=== PATIENT | male | born 1950 | race Caucasian/White ===

== ENCOUNTER 2016-08-17 06:51 | Outpatient (CLI) | payer MEDICARE, OTHER ==
[~2016-08-17] VITALS: Ht 157.5 cm; Wt 92.7 kg
--- NOTE | ~2016-08-17 | HEMODYNAMI ---
PATIENT:Amanda KENDRICK MEDICAL RECORD: [id number] : 52 LOCATION:DGIN ADMISSION DATE: 08/17/16 Generatedon:08/17/201610:40 Patient name: Amanda KENDRICK Patient #: [id number] SSN: : [birth year] Date of study: 08/17/2016 Page: Of Hemodynamic Procedure Report Patient Data Patient Demographics Procedure consent was obtained First Name: Amanda Gender: Male Last Name: AROLDO : 1950 [facility] Initial: B Age: 66 year(s) Patient #: [id number] Race: Additional ID: [id number] Contact details Address: [address] [place] [address] State: [place] City: [facility] Zip code: [address] Past Medical History Allergies Allergen Reaction Date Comments Reported Other allergy 12/27/2015 codeine, penicillins Codeine 08/17/2016 Penicillins 08/17/2016 SUSAN inhibitors 08/17/2016 Admission Admission Data Admission Date: 08/17/2016 Admission Time: 6:51 Lab Results Lab Result Date: 08/17/2016 Lab Result Time: 0:00 Biochemistry Name Units Result Min Max Creatinine mg/dl 1.3 --(---*)-- 0.6 1.3 CBC Name Units Result Min Max Hemoglobin g/dl 14.1 --(*---)-- 13.5 17.5 Procedure Procedure Types Cath Procedure Diagnostic Procedure LHC LHC w/Coronaries w/Grafts PCI Procedure SVG-BMS/KAMILA Initial Procedure Description Procedure Date Procedure Date: 08/17/2016 Procedure Start Time: 10:17 Procedure End Time: 10:39 Procedure Staff Name Function Eliazar Krishnan MD Performing Physician Obdulio Melton RT Scrub Gavin Church RN Bass Fisher Rosalie Ibarra RN Nurse Rita Agrawal RT Monitor Procedure Data Cath Procedure Fluoroscopy Diagnostic fluoroscopy Total fluoroscopy Time: 5.2 time: 5.2 min min Diagnostic fluoroscopy Total fluoroscopy dose: dose: 1816 mGy 1816 mGy Contrast Material Contrast Material Type Amount (ml) Isovue 300 136 Entry Location Entry Primary Successful Side Size Upsize Upsize Entry Closure Succes sful Closure Location (Fr) 1 (Fr) 2 (Fr) Remarks Device Remarks Femoral Right 5 Fr 6 Fr Vascade artery Short Closure System Estimated blood loss: 10 ml Diagnostic catheters Device Type Used For End Catheter Placement Cordis 5Fr Pigtail LV Angiography Catheter (MP) Cordis 5Fr JL 4.0 Left Coronary Catheter (MP) Angiography Cordis 5Fr 3DRC Catheter Right Coronary (MP) Angiography Cordis Infinity 5Fr AR 2 Right Coronary MOD catheter Angiography Cordis Infinity 5Fr MPA-2 SVG Angiography catheter Procedure Complications No complications Procedure Medications Medication Administration Route Dosage Oxygen NC 2 l/min Heparin Flush Bag added to field 2 bags (1000units/500ml NS) Lidocaine 2% added to field 20 Versed I.V. 1 mg Fentanyl I.V. 50 mcg Versed I.V. 1 mg Fentanyl I.V. 50 mcg Heparin Bolus I.V. 4000 units Hemodynamics Rest HGB: 14.1 (g/dl) Heart Rate: 60 (bpm) Snapshots Pre Cath Intra NCS Post Cath Vital Signs Time Heart Resp SPO2 NIBP (mmHg) Rhythm Pain Sedation Rate (ipm) (%) Status Level (bpm) 10:03:31 65 22 98 128/76(101) NSR 0 (11) 10(A) , No pain 10:08:29 66 20 94 Measuring NSR 0 (11) 10(A) , No pain 10:08:32 66 20 94 148/84(110) NSR 0 (11) 10(A) , No pain 10:12:45 64 18 98 117/64(81) NSR 0 (11) 10(A) , No pain 10:16:59 63 18 99 118/71(87) NSR 0 (11) 10(A) , No pain 10:21:13 63 18 99 126/70(93) NSR 0 (11) 9(A) , No pain 10:25:25 64 18 99 99/58(77) NSR 0 (11) 9(A) , No pain 10:29:35 63 16 99 109/57(81) NSR 0 (11) 9(A) , No pain 10:33:43 63 17 98 88/56(70) NSR 0 (11) 9(A) , No pain 10:37:24 65 16 98 113/66(92) NSR 0 (11) 9(A) , No pain Medications Time Medication Route Dose Verified Delivered Reason Notes Effectiveness by by 10:06:14 Oxygen NC 2 Eliazar Rosalie Per physician l/min Eulogio Ibarra RN 10:06:20 Heparin Flush added 2 Eliazaryusuf Macrey used for Bag to bags Eulogio Krishnan MD procedure (1000units/500ml field NS) 10:06:27 Lidocaine 2% added 20ml Eliazar Eliazar used for to vial Eulogio Krishnan MD procedure field 10:15:11 Versed I.V. 1 mg Eliazar Rosalie for sedation Eulogio Ibarra RN 10:15:17 Fentanyl I.V. 50 Eliazar Rosalie for sedation mcg Eulogio Ibarra RN 10:17:42 Versed I.V. 1 mg Eliazar Rosalie for sedation Eulogio Ibarra RN 10:17:49 Fentanyl I.V. 50 Eliazar Rosalie for sedation mcg Eulogio Ibarra RN 10:28:03 Heparin Bolus I.V. 4000 Eliazar Rosalie for dose units Eulogio Ibarra RN anticoagulation verified with dr krishnan Procedure Log Time Note 9:20:23 Gavin Church RN sent for patient. Start room use. 9:55:54 Informed consent obtained and on chart 9:56:28 Time tracking: Regular hours 9:56:32 Plan of Care:Hemodynamics will remain stable., Cardiac rhythm will remain stable., Comfort level will be maintained., Respiratory function will remain adequate., Patient/ family verbilizes understanding of procedure., Procedure tolerated without complication., Recovers from procedure without complications.. 10:02:21 Patient received from Outpatients to CCL 1 Alert and oriented. Tansferred to table in Supine position. 10:02:22 Warm blankets applied, and jacinto hugger turned on for patient comfort. 10:02:22 Correct patient and procedure confirmed by team. 10:02:23 ECG and BP/O2 sat monitors applied to patient. 10:02:24 Vital chart was started 10:02:25 Full Disclosure recording started 10:04:46 Rhythm: sinus rhythm 10:04:58 H&P Date Dictated: 08/15/2016 Within 30 days and on chart., H&P Addendum completed by physician on day of procedure. (MUST COMPLETE FOR ALL OUTPATIENTS). 10:04:59 Pre-procedure instructions explained to patient. 10:04:59 Pre-op teaching completed and patient verbalized understanding. 10:05:01 Family in waiting room. 10:05:04 Patient NPO since Midnight. 10:05:11 Patient allergic to Codeine 10:05:16 Patient allergic to Penicillins 10:05:19 Patient allergic to SUSAN inhibitors 10:05:24 Is the patient allergic to Iodine/contrast media? No. 10:05:29 Is patient on blood thinner?Yes 10:05:35 ACC The patient was administered the following blood thiners within the last 24 hours: ACCPlavix 10:05:36 Patient diabetic? Yes. 10:05:37 If diabetic: On Metformin? Yes 10:05:40 If on Metformin: Last Dose? 08/16/2016 10:05:46 Previous problem with sedation/anesthesia? No ? 10:05:48 Snore? Yes 10:05:48 Sleep apnea? Yes 10:05:49 Deviated septum? No 10:05:50 Opens mouth fully? Yes 10:05:51 Sticks out tongue? Yes 10:05:56 Airway obstruction? No ? 10:05:59 Dentures? Yes In 10:06:02 Pre procedure: right dorsailis pedis pulse 2+ Normal; easily identifiable; not easily obliterated 10:06:14 Oxygen 2 l/min NC was given by Rosalie Ibarra RN; Per physician; 10:06:14 Patient pain scale 2/10 Chest. 10:06:20 Heparin Flush Bag (1000units/500ml NS) 2 bags added to field was given by Eliazar Krishnan MD; used for procedure; 10:06:20 IV patent on arrival in left hand with 0.9% NaCl at [facility]. 10:06:27 Lidocaine 2% 20ml vial added to field was given by Eliazar Krishnan MD; used for procedure; 10:07:36 Lab Result : Hemoglobin 14.1 g/dl 10:07:36 Lab Result : Creatinine 1.3 mg/dl 10:07:41 Lab results completed and on chart. 10:07:43 Right groin area was prepped with chlora-prep and draped in sterile fashion 10:07:45 Alarms reviewed by R. N. 10:07:46 Sharps counted by scrub and verified by R.N. 10::15 Baseline sample Acquired. 10:14:42 Final Timeout: patient, procedure, and site verified with staff and physician. All members of the team are in agreement. 10:14:44 Right groin site verified by team. 10:14:47 Physical assessment completed. ASA score P 2 - A patient with mild systemic disease as per Eliazar Krishnan MD. 10:14:51 Sedation plan: IV Moderate Sedation Versed, Fentanyl 10:14:56 Zero performed for pressure channel P1 10:15:11 Versed 1 mg I.V. was given by Rosalie Ibarra RN; for sedation; 10:15:17 Fentanyl 50 mcg I.V. was given by Rosalie Ibarra RN; for sedation; 10:16:02 Zero performed for pressure channel P1 10:16:07 Procedure started. 10:17:24 Local anesthetic to right femoral artery with Lidocaine 2% by Eliazar Krishnan MD.INITIAL ACCESS ONLY 10:17:42 Versed 1 mg I.V. was given by Rosalie Ibarra RN; for sedation; 10:17:49 Fentanyl 50 mcg I.V. was given by Rosalie Ibarra RN; for sedation; 10:17:53 A 5 Fr sheath was inserted into the Right Femoral artery 10:18:02 Use device set Femoral Dx 10:18:03 Acist Syringe opened to sterile field. 10:18:04 Bag Decanter opened to sterile field. 10:18:04 Cardinal Cath Pack opened to sterile field. 10:18:05 Terumo 5Fr Halliday Sheath opened to sterile field. 10:18:05 St Shreyas 260cm J .035 wire opened to sterile field. 10:18:06 Acist Hand Control opened to sterile field. 10:18:06 Acist Manifold opened to sterile field. 10:18:07 Cordis Infinity 5Fr Multipack catheter opened to sterile field. 10:18:07 Tegaderm 4 x 4 opened to sterile field. 10:18:13 A Cordis 5Fr Pigtail Catheter (MP) was advanced over the wire and used for LV Angiography. 10:18:59 LV gram done using MARSHALL 10:19:00 LV hemodynamics recorded. 10:19:03 Injector settings: Ml/sec: 10, Volume: 20, 10:19:08 EF : 40 % 10:19:11 Catheter removed. 10:19:16 A Cordis 5Fr JL 4.0 Catheter (MP) was advanced over the wire and used for Left Coronary Angiography. 10:21:08 Catheter removed. 10:21:29 A Cordis 5Fr 3DRC Catheter (MP) was advanced over the wire and used for Right Coronary Angiography. 10:21:36 Catheter removed. 10:23:12 A Cordis Infinity 5Fr AR 2 MOD catheter was advanced over the wire and used for Right Coronary Angiography. 10:23:52 Terumo 6Fr Halliday Sheath opened to sterile field. 10:23:52 Mobypark BasixCompak Inflation Kit opened to sterile field. 10:23:53 Gonzalez Novintisper J 300cm 0.014 guide wire opened to sterile field. 10:24:17 Catheter removed. 10:25:32 A Cordis Infinity 5Fr MPA-2 catheter was advanced over the wire and used for SVG Angiography. To RCA 10:25:54 Catheter removed. 10:27:01 Medtronic Launcher 6Fr MB 1 guide catheter opened to sterile field. 10:27:02 [place] IVUS Catheter opened to sterile field. 10:27:25 Sheath upsized to a 6 Fr Short. 10:27:44 Cardiac Site: SVG to RCA 10:27:47 ACC Pre-intervention ISAAC Flow is 3. 10:27:57 6 Fr MB1 guide catheter was inserted over the wire 10:28:03 Heparin Bolus 4000 units I.V. was given by Rosalie Ibarra RN; for anticoagulation; dose verified with dr krishnan 10:28:47 Whisper wire advanced. 10:29:28 IVUS catheter advanced over wire. 10:32:37 IVUS catheter removed over wire. 10:33:53 Inflation Number: 1 A Medtronic Integrity 4.0 X 22 stent was prepped and advanced across the Aorta Right -> Dist RCA. The stent was deployed at 13 SAMSON for 0:06 (min:sec). 10:34:04 ACC Post-intervention ISAAC Flow is 3. 10:34:05 Stent catheter was removed intact over wire. 10:34:06 Wire removed. 10:34:06 Guide catheter removed. 10:34:17 Vascade 6/7 Fr Closure Device opened to sterile field. 10:34:25 Sheath removed intact; hemostasis achieved with Vascade Closure System to the Right Femoral artery. 10:35:18 Procedure ended.(Physican Out) 10:36:44 Fluoroscopy time 05.20 minutes. 10:36:49 Flurop Dose total: 1816 10:36:49 Fluoroscopy dose: 1816 mGy 10:36:53 Contrast amount:Isovue 300 136ml. 10:36:54 Sharps counted by scrub and verified by R.N. 10:36:57 Insertion/operative site no bleeding no hematoma. 10:36:59 Post-op/insertion site Right Femoral artery dressed using a 4 x 4 and Tegaderm. 10:37:03 Post right femoral artery:stable, clean and dry 10:37:04 Post Procedure Pulses reassessed and unchanged 10:37:11 Post-procedure physical assessment completed. ASA score P 2 - A patient with mild systemic disease as per Eliazar Krishnan MD. 10:37:17 Post procedure rhythm: sinus rhythm 10:37:21 Estimated blood loss: 10 ml 10:37:22 Post procedure instruction explained to patient.Patient verbalizes understanding. 10:37:25 Patient needs reinforcement of post procedure teaching. 10:37:38 Procedure type changed to Cath procedure, Diagnostic procedure, LHC, LHC w/Coronaries w/Grafts, PCI procedure, SVG-BMS/KAMILA Initial 10:37:48 Procedure Complication : No complications 10:37:50 See physician's report for complete and final results. 10:39:08 Procedure and supply charges have been captured, reviewed, submitted and are correct. 10:39:09 Vital chart was stopped 10:39:11 Report given to Post Procedure Room. 10:39:15 Patient transfered to Post Procedure Room with Stretcher. 10:39:18 Procedure ended. 10:39:18 Full Disclosure recording stopped 10:40:31 End room use (Document Last) 10:40:37 ACC-PCI Only Patient was given prescriptions, or instructed by Eliazar Krishnan MD to start/continue the following medications upon discharge: Plavix Intervention Summary Intervention Notes Time ActionType Lesion and Equipment Action# Pressure Duration Attributes Used 10:33:53 Place stent Aorta Right Medtronic 1 13 00:06 -> Dist RCA Integrity 4.0 X 22 stent Device Usage Item Name Manufacture Quantity Catalog Hospital Part Current Minima l Lot# / Number Charge Number Stock Stock Serial# Code Acist Acist 1 94920 653449 059755 107799 20 Syringe Medical Systems Inc Bag Microtek 1 2002S 590197 17665 102022 5 Decanter Medical Inc. Cardinal Cardinal 1 [id number] 419323 60186 797742 5 Cath Pack Health Terumo 5Fr Terumo 1 [id number] 233773 362892 1986[address] St Shreyas 1 719510 552693 252948 206496 30 260cm J .035 wire Acist Hand Acist 1 68511 433993 583753 032545 5 Control Medical Systems Inc Acist Acist 1 83820 407821 625714 728685 5 Manifold Medical Systems Inc Cordis Cardinal 1 [id number] 115458 55832 618287 30 Infinity Health 5Fr Multipack catheter Tegaderm 4 3M 1 1626W 912965 651418 992059 5 x 4 Cordis 5Fr Cardinal 1 053735 5 Pigtail Health Catheter (MP) Cordis 5Fr Cardinal 1 216117 5 JL 4.0 Health Catheter (MP) Cordis 5Fr Cardinal 1 202984 5 3DRC Health Catheter (MP) Cordis Cardinal 1 [id number] 967148 374751 270455 20 Infinity Health 5Fr AR 2 MOD catheter Terumo 6Fr Terumo 1 [id number] 891860 831908 703701 40 Halliday Sheath Merit Merit 1 [id number] 256411 002359 480731 15 [facility] Hospit[facility] Medical Inflation Kit Gonzalez Gonzalez 1 [id number] 783860 407359 063854 5 Whisper J Vascular 300cm 0.014 guide wire Cordis Cardinal 1 [id number] 560066 200606 101201 5 Infinity Health 5Fr MPA-2 catheter Medtronic Medtronic 1 [id number] 156183 13366 727279 1 Launcher 6Fr MB 1 guide catheter [place] 1 [id number] 971587 557070 918866 8 [place] IVUS Catheter Medtronic Medtronic 1 [id number] 478741 133409 437058 5 [id number] Integrity 4.0 X 22 stent Vascade 6/7 Cardiva 1 [id number] 796480 009047 306356 5 Fr Closure Medical, Device Inc. Signature Audit [place] Stage Time Signature Unsigned Intra-Procedure 08/17/2016 Rita 10:40:52 AM Counts RT(R) Signatures Monitor : Rita Signature : Counts RT Date : Time : [place] [id number] [place] [address]
[~2016-08-17 06:51] MED LIST: ACETAMINOPHEN500 M1 PO; ASPIRIN EC325 M1 PO; ASPIRIN EC81 M1; ASPIRIN325 MG PO; BACLOFEN10 MG PO; BENICAR20 MG PO; COLCRYS0.6 MG PO; COZAAR50 MG PO; FLOVENT DI50 MCG/DIS INH; FLUTICASONE PRO16 GM NASAL; FUROSEMIDE PO; GABAPENTIN100 MG PO; GLIPIZIDE10 MG PO; GLUCOPHAGE1000 MG PO; IMDUR60 MG PO; ISOSORBIDE MONO60 M1 PO; LANTUS INSULIN10 ML INJ; LASIX20 MG PO; MELATONIN 3 MG1 TAB PO; NEURONTIN 300300 MG PO; NITROSTAT0.3 MG SL; NOVOLOG100 U/M1 SC; PLAVIX75 MG PO; PRAVACHOL80 MG PO; SYNTHROID175 MCG PO; TOPROL XL25 MG PO; TOPROL XL50 MG PO; TRIGLIDE160 MG PO; ZANTAC150 MG PO
[2016-08-17 08:03] LABS: BASOPHILS 0.2 % (0.0-2.0); EOSINOPHILS 3.6 % (0-7); HEMATOCRIT 43.5 % (42.0-54.0); HEMOGLOBIN 14.1 g/dL (13.5-17.5); IMMATURE GRANULOCYTES 0.2 % (0-5); LYMPHOCYTES 30.8 % (15-50); MCHC 32.4 g/dL (31.0-37.0); MCV 86.3 fL (80.0-100.0); MEAN PLATELET VOLUME 10.4 fL (7.4-10.4); MONOCYTES 11.3 % (2-11); NEUTROPHILS 53.9 % (40-80); PLATELET COUNT 229 10x3/uL (130-400); RBC 5.04 10x6/uL (4.20-6.10); WBC 4.4 10x3/uL (4.8-10.8)
[2016-08-17 08:06] LABS: ANION GAP 12.2 mmol/L (8-16); CALCIUM 9.4 mg/dL (8.5-10.1); CARBON DIOXIDE 28.9 mmol/L (21.0-32.0); CREATININE - SERUM 1.3 mg/dL (0.6-1.3); POTASSIUM - SERUM 4.1 mmol/L (3.5-5.1)
[2016-08-17] MEDS ORDERED: K-DUR20 MEQ PO (08:58)
[2016-08-17 09:01] VITALS: BP 103/67; Ht 157.5 cm; Wt 92.7 kg
--- NOTE | 2016-08-17 11:00 | NUR ---
1100 LYING FLAT, RESTING WITH EYES CLOSED. 2L NC APPLIED WHILE SLEEPING. NSR RATE 62 W NO C/O CHEST PAIN. PULSES PALP X 4. R GROIN 6F VASCADE C/D/I WITH NO HEMATOMA OR BLEEDING. AT BEDSIDE.
--- NOTE | 2016-08-17 11:43 | NUR ---
1130 CONTINUES TO SLEEP, NC IN PLACE. NSR RATE 62. R GROIN REMAINS C/D/I WITH NO HEMATOMA OR BLEEDING. AT SIDE.
--- NOTE | 2016-08-17 12:58 | NUR ---
1230 LYING FLAT, AWAKE. ROOM AIR WITH NO DISTRESS. NSR RATE 63 W NO C/O CHEST PAIN. PULSES PALP X 4. R GROIN 6F VASCADE C/D/I WITH NO HEMATOMA OR BLEEDING.
--- NOTE | 2016-08-17 13:27 | NUR ---
AWAKE, LYING FLAT TALKING WITH AT BEDSIDE. ROOM AIR W NO DISTRESS. NSR RATE 63, R GROIN REMAINS C/D/I WITH NO HEMATOMA OR BLEEDING.
--- NOTE | 2016-08-17 14:11 | NUR ---
1400 ELEVATED HOB, ALL VITALS WNL. R GROIN 6F VASCADE C/D/I WITH NO HEMATOMA OR BLEEDING. AT BEDSIDE. WILL MONITOR GROIN FOR BLEEDING.
--- NOTE | 2016-08-17 14:21 | NUR ---
PIV REMOVED FROM LEFT HAND WITH BANDAID APPLIED. UP TO BEDSIDE TO DRESS.
--- NOTE | 2016-08-17 14:25 | NUR ---
AMBULATED TO BATHROOM TO VOID. R GROIN REMAINS C/D/I AFTER AMBULATING. D/C INSTRUCTIONS DISCUSSED WITH PATIENT AND . WHEELED DOWN VIA WHEELCHAIR.
--- NOTE | 2016-08-24 11:11 | OP ---
PATIENT NAME: Amanda KENDRICK MEDICAL RECORD: [id number] :52 LOCATION:D.CAT ADMISSION DATE: SURGEON: PAOLA SANDOVAL MD DATE OF OPERATION: 08/17/2016 PROCEDURES: 1. PTCA stent, vein graft to RCA. 2. Left heart catheterization. 3. Selective coronary angiography. 4. Vein graft angiography. 5. Left ventriculogram. INDICATION: Angina, coronary artery disease, abnormal ECG, inferior ST-T changes. PROCEDURE IN DETAIL: After informed consent was obtained and after detailed explanation of the risks, benefits as well as alternative therapies, the patient elected to proceed with angiogram and angioplasty. The right femoral area was prepped and draped in normal sterile fashion. Right femoral artery was cannulated via modified Seldinger technique with placement of 6-Telugu sheath. All catheters exchanged through this sheath. FINDINGS: Left ventriculogram was performed in standard 30-degree MARSHALL view reveals global hypokinesis. Overall ejection fraction in the 40% range. SELECTIVE CORONARY ANGIOGRAPHY: 1. Left main is with no significant angiographic disease. 2. Left anterior descending has previously placed stents. There is an area of questionable stenosis and haziness in the mid distal vessel, otherwise this is widely patent. 3. Left circumflex is totally occluded. 4. Vein graft to left circumflex is totally occluded. 5. The right coronary feeds the PLV system. This is patent with only moderate irregularities. 6. Vein graft to the right PDA is patent, however, intravascular ultrasound revealed 70% hazy stenosis in the mid shaft. PTCA STENT OF THE RCA: Vein graft with stent used of 4.0 x 22 mm Integrity. Result was 0% residual stenosis. OVERALL IMPRESSION: Successful percutaneous transluminal coronary angioplasty stent of the vein graft to the right coronary artery going from 70% initial stenosis confirmed by intravascular ultrasound to 0% residual. TRANSINT:[id number] Voice Confirmation ID: [id number] DOCUMENT ID: [id number] PAOLA SANDOVAL MD at 1111 CC: [id number] DICTATION DATE: 08/17/16 1041 BROOMCORN SORTER: 08/17/16 1307 DEP CLI 08/17/16 [place] [address]
== END 2016-08-17 14:26 | disposition home or self-care (01) ==
LOC: D.CATH 06:51
PROVIDERS: Internal Medicine Interventional Cardiology
DX: I25.719 Atherosclerosis of autologous vein coronary artery bypass graft(s) with unspecified angina pectoris (principal); R94.39 Abnormal result of other cardiovascular function study

== ENCOUNTER 2017-09-27 08:10 | Outpatient (CLI) | payer MEDICARE, OTHER ==
[~2017-09-27] VITALS: Ht 157.5 cm; Wt 95.5 kg
--- NOTE | ~2017-09-27 | OP ---
PATIENT NAME: Amanda KENDRICK MEDICAL RECORD: [id number] :52 LOCATION:D.CAT ADMISSION DATE: SURGEON: PAOLA SANDOVAL MD DATE OF OPERATION: 09/27/2017 PROCEDURES: 1. PTCA stent vein graft to RCA. 2. PTCA, LAD. 3. Left heart catheterization. 4. Selective coronary angiography. 5. Left ventriculogram. 6. Vein graft angiography. INDICATION: Angina and coronary artery disease. PROCEDURE IN DETAIL: After informed consent was obtained and after detailed explanation of risks, benefits as well as alternative therapies, the patient elected to proceed with angiogram and angioplasty. The right femoral area was prepped and draped in normal sterile fashion. The right femoral artery was cannulated via modified Seldinger technique with placement of 6-Turkish sheath. All catheters exchanged through this sheath. FINDINGS: The left ventriculogram was performed in standard 30-degree MARSHALL view, reveals preserved cardiac wall motion, ejection fraction 50%. SELECTIVE CORONARY ANGIOGRAPHY: 1. Left main showed no significant angiographic disease. 2. Left anterior descending has previously placed stents. These have 95% in-stent restenosis in the mid vessel. 3. Left circumflex is totally occluded. 4. Vein graft to the circumflex is totally occluded. 5. Right coronary has a total occlusion in the mid vessel. 6. Vein graft to the right coronary is patent, however, there is a new 70% to 80% stenosis in the proximal shaft throughout. PTCA STENT OF THE VEIN GRAFT TO THE RIGHT CORONARY ARTERY: The stent used was a 3.5 x 18 mm Miguelito stent. Result was 0% residual stenosis throughout. PTCA OF THE LAD: High pressure PTCA was made with a 2.5 and 3.0 NC Euphora balloon. Result was 0% residual stenosis. OVERALL IMPRESSION: Successful percutaneous transluminal coronary angioplasty stent of the vein graft to the RCA and successful percutaneous transluminal coronary angioplasty of the LAD, both going from 80% and 90% initial stenosis to 0% residual. TRANSINT:[id number] Voice Confirmation ID: [id number] DOCUMENT ID: [id number] OPERATIVE REPORT [id number] Amanda KENDRICK JEFFREY MD CC: [id number] DICTATION DATE: 09/27/17 1350 TRIAL JUDGE: 09/27/17 1632 REG [facility] [address] [place] [address]
--- NOTE | ~2017-09-27 | HEMODYNAMI ---
PATIENT:Amanda KENDRICK MEDICAL RECORD: [id number] : 52 LOCATION:[facility] ADMISSION DATE: 09/27/17 Generatedon:09/27/201713:52 Patient name: Amanda KENDRICK Patient #: [id number] SSN: : [birth year] Date of study: 09/27/2017 Page: Of Hemodynamic Procedure Report Patient Data Patient Demographics Procedure consent was obtained First Name: Amanda Gender: Male Last Name: AROLDO : 1950 Middle Initial: B Age: 67 year(s) Patient #: [id number] Race: Additional ID: [id number] Contact details Address: [address] [place] [address] State: [place] City: [facility] [place] Zip code: [address] Past Medical History Allergies Allergen Reaction Date Comments Reported Other allergy 12/27/2015 codeine, penicillins Codeine 08/17/2016 Penicillins 08/17/2016 SUSAN inhibitors 08/17/2016 Other allergy 09/27/2017 CODEINE, PCN Admission Admission Data Admission Date: 09/27/2017 Admission Time: 8:10 Height (in.): 5.2 BSA: 0.32 (m2) Height (cm.): 13.21 BMI: 5460.23 (kg/m2) Weight (lbs.): 210 Weight (kg.): 95.25 Lab Results Lab Result Date: 09/27/2017 Lab Result Time: 0:00 Biochemistry Name Units Result Min Max BUN mg/dl 29 --(----)-* 7 18 Creatinine mg/dl 1.5 --(----)-* 0.6 1.3 CBC Name Units Result Min Max Hemoglobin g/dl 14.7 --(-*--)-- 13.5 17.5 Procedure Procedure Types Cath Procedure Diagnostic Procedure LHC LHC w/Coronaries w/Grafts PCI Procedure Coronary Stent AMI/SVG/CORRECTION OFFICER CITY OR COUNTY JAIL PTCA or Stent SVG-BMS/KAMILA Initial PTCA PTCA Initial Miscellaneous Procedures Moderate Sedation up to 30 minutes Procedure Description Procedure Date Procedure Date: 09/27/2017 Procedure Start Time: 13:19 Procedure End Time: 13:51 Procedure Staff Name Function Janelle Snyder RT Monitor Eliazar Krishnan MD Performing Physician Rajesh Robledo RT Scrub Aguilar Reynolds RN Nurse Procedure Data Cath Procedure Fluoroscopy Diagnostic fluoroscopy Total fluoroscopy Time: 7.2 time: 7.2 min min Diagnostic fluoroscopy Total fluoroscopy dose: dose: 4404 mGy 4404 mGy Contrast Material Contrast Material Type Amount (ml) Isovue 300 117 Entry Location Entry Primary Successful Side Size Upsize Upsize Entry Closure Succes sful Closure Location (Fr) 1 (Fr) 2 (Fr) Remarks Device Remarks Femoral Right 5 Fr 6 Fr Exoseal artery Short Estimated blood loss: 10 ml Diagnostic catheters Device Type Used For End Catheter Placement MULTIPACK Pigtail 5 Fr Procedure catheter MULTIPACK JL 4.0 5Fr Procedure catheter DIAGNOSTIC AR 2 MOD 5 Fr Procedure catheter ([id number]) DIAGNOSTIC MPA-2 5Fr Procedure catheter ([id number]) Procedure Complications No complications Procedure Medications Medication Administration Route Dosage Oxygen NC 2 l/min Lidocaine 2% added to field 20 Heparin Flush Bag added to field 2 bags (1000units/500ml NS) 0.9% NaCl I.V. 100 ml/hr Versed I.V. 1 mg Fentanyl I.V. 50 mcg Versed I.V. 1 mg Fentanyl I.V. 50 mcg Heparin Bolus I.V. 4000 units Cardene I.C. 300 mcg Hemodynamics Rest BSA: 0.32 (m2) HGB: 14.7 (g/dl) O2 Consumption: Estimated: 37.56 (ml/min) O2 Con sumption indexed: Estimated:117.38 (ml/min/m) Heart Rate: 73 (bpm) Snapshots Pre Cath Intra NCS Post Cath Vital Signs Time Heart Resp SPO2 etCO2 NIBP Rhythm Pain Sedation Rate (ipm) (%) (mmHg) (mmHg) Status Level (bpm) 13:07:19 75 21 93 0 113/66(85) NSR 0 (11) 10(A) , No pain 13:11:31 72 16 97 36.9 97/67(79) NSR 0 (11) 10(A) , No pain 13:15:43 68 16 98 26.4 116/66(83) NSR 0 (11) 10(A) , No pain 13:19:54 71 14 97 15.8 108/70(85) NSR 0 (11) 9(A) , No pain 13:24:12 70 16 97 13.6 111/58(77) NSR 0 (11) 9(A) , No pain 13:28:26 71 16 97 30.2 106/65(80) NSR 0 (11) 9(A) , No pain 13:32:40 70 15 97 30.9 106/65(89) NSR 0 (11) 9(A) , No pain 13:36:58 73 15 98 30.9 103/57(85) NSR 0 (11) 9(A) , No pain 13:41:14 71 15 98 14.3 104/57(78) NSR 0 (11) 9(A) , No pain 13:45:29 79 19 97 36.9 92/57(66) NSR 0 (11) 10(A) , No pain 13:49:59 75 16 97 28.7 106/67(90) NSR 0 (11) 10(A) , No pain Medications Time Medication Route Dose Verified Delivered Reason Notes Effectiveness by by 13:10:47 Oxygen NC 2 Eliazar Buffie used for l/min Eulogio Reynolds RN procedure 13:10:56 Lidocaine 2% added 20ml Eliazar Eliazar for local to vial Eulogio Krishnan MD anesthetic field 13:11:03 Heparin Flush added 2 Eliazar Eliazar used for Bag to bags Eulogio Krishnan MD procedure (1000units/500ml field NS) 13:11:20 0.9% NaCl I.V. 100 Eliazar Buffie used for ml/hr Eulogio Reynolds RN procedure 13:17:53 Versed I.V. 1 mg Eliazar Buffie for sedation Eulogio Reynolds RN 13:17:59 Fentanyl I.V. 50 Eliazar Buffie for sedation mcg Eulogio Reynolds RN 13:23:09 Versed I.V. 1 mg Eliazar Buffie for sedation Eulogio Reynolds RN 13:23:13 Fentanyl I.V. 50 Eliazar Buffie for sedation mcg Eulogio Reynolds RN 13:32:22 Heparin Bolus I.V. 4000 Eliazar Buffie for verifi ed units Tauth MD Reynolds RN anticoagulation with dr krishnan 13:43:35 Cardene I.C. 300 Eliazar Eliazar [place] [facility] [place]ulogio Krishnan MD vasodilation Procedure Log Time Note 12:52:02 Patient Height : 5.2 inches 12:52:05 Patient Weight : 210 lbs 12:53:22 Aguilar Reynolds RN sent for patient. Start room use. 12:53:23 Time tracking: Regular hours 12:53:27 Plan of Care:Hemodynamics will remain stable., Cardiac rhythm will remain stable., Comfort level will be maintained., Respiratory function will remain adequate., Patient/ family verbilizes understanding of procedure., Procedure tolerated without complication., Recovers from procedure without complications.. 12:53:29 Signed procedure consent form obtained from patient. 12:53:42 H&P Date Dictated: 09/26/2017 Within 30 days and on chart.. 12:54:03 Patient allergic to Other allergyCODEINE, PCN 12:55:15 Lab Result : BUN 29 mg/dl 12:55:15 Lab Result : Hemoglobin 14.7 g/dl 12:55:15 Lab Result : Creatinine 1.5 mg/dl 12:56:28 Patient received from Pre/Post Procedure Room to CCL 3 Alert and oriented. Tansferred to table in Supine position. 12:56:29 Warm blankets applied, and jacinto hugger turned on for patient comfort. 12:56:29 Correct patient and procedure confirmed by team. 12:56:30 ECG and BP/O2 sat monitors applied to patient. 13:06:06 Vital chart was started 13:06:08 Baseline sample Acquired. 13:06:12 Rhythm: sinus rhythm 13:06:13 Full Disclosure recording started 13:06:15 Pre-procedure instructions explained to patient. 13:06:15 Pre-op teaching completed and patient verbalized understanding. 13:06:17 Family in patients room. 13:06:18 Patient NPO since Midnight. 13:06:20 Is the patient allergic to Iodine/contrast media? No. 13:06:21 Is patient on blood thinner?Yes 13:06:25 ACC The patient was administered the following blood thiners within the last 24 hours: ACCPlavix 13:06:30 Patient diabetic? Yes. 13:06:31 If diabetic: On Metformin? Yes 13:06:33 If on Metformin: Last Dose? 09/26/2017 13:06:36 Previous problem with sedation/anesthesia? No ? 13:06:37 Snore? Yes 13:06:38 Sleep apnea? No 13:06:39 Deviated septum? No 13:06:39 Opens mouth fully? Yes 13:06:40 Sticks out tongue? Yes 13:06:42 Airway obstruction? No ? 13:06:46 Dentures? Yes in tight 13:06:57 Pre procedure: right dorsailis pedis pulse 2+ Normal; easily identifiable; not easily obliterated 13:07:04 Patient pain scale 0/10 ?. 13:07:12 IV patent on arrival in left hand with 0.9% NaCl at [facility]. 13:07:19 Lab results completed and on chart. 13:07:22 Right groin area was prepped with chlora-prep and draped in sterile fashion 13:07:23 Alarms reviewed by R. N. 13:07:23 Sharps counted by scrub and verified by R.N. 13:10:47 Oxygen 2 l/min NC was administered by Aguilar Reynolds RN; used for procedure; 13:10:56 Lidocaine 2% 20ml vial added to field was administered by Eliazar Krishnan MD; for local anesthetic; 13:11:03 Heparin Flush Bag (1000units/500ml NS) 2 bags added to field was administered by Eliazar Krishnan MD; used for procedure; 13:11:06 Use device set Femoral Dx 13:11:07 ACIST Syringe (57088) opened to sterile field. 13:11:09 Bag Decanter (2002S) opened to sterile field. 13:11:09 ACIST Hand Control (05611) opened to sterile field. 13:11:10 ACIST Manifold (24935) opened to sterile field. 13:11:11 Tegaderm 4 x 4 (1626W) opened to sterile field. 13:11:13 Medline Cath Pack ([id number]) opened to sterile field. 13:11:13 SHEATH 5FR [place] (MNB357) opened to sterile field. 13:11:14 DIAGNOSTIC WIRE .035 260cm J wire (115875) opened to sterile field. 13:11:17 DIAGNOSTIC Multipack 5Fr catheter set ([id number]) opened to sterile field. 13:11:18 PERCUTANEOUS ENTRY 19GA needle opened to sterile field. 13:11:20 0.9% NaCl 100 ml/hr I.V. was administered by Aguilar Reynolds RN; used for procedure; ::23 --------ALL STOP TIME OUT------ 13:17:25 Final Timeout: patient, procedure, and site verified with staff and physician. All members of the team are in agreement. 13:17:26 Right groin site verified by team. 13::33 Physical assessment completed. ASA score P 2 - A patient with mild systemic disease as per Eliazar Krishnan MD. 13:17:37 Sedation plan: IV Moderate Sedation Medication:Versed, Fentanyl 13::53 Versed 1 mg I.V. was administered by Aguilar Reynolds RN; for sedation; 13::59 Fentanyl 50 mcg I.V. was administered by Aguilar Reynolds RN; for sedation; 13:19:41 Zero performed for pressure channel P1 13:19:46 Procedure started. 13:19:52 Local anesthetic to right femoral artery with Lidocaine 2% by Eliazar Krishnan MD.INITIAL ACCESS ONLY 13:22:37 A 5 Fr sheath was inserted into the Right Femoral artery 13:22:47 A MULTIPACK Pigtail 5 Fr catheter was advanced over the wire and used for Procedure. 13:22:50 LV gram done using MARSHALL 13::52 Injector settings: Ml/sec: 10, Volume: 20, 13:23:02 EF : 50 % 13:23:09 Versed 1 mg I.V. was administered by Aguilar Reynolds RN; for sedation; 13:23:13 Fentanyl 50 mcg I.V. was administered by Aguilar Reynolds RN; for sedation; 13:24:21 Catheter removed. 13:24:53 A MULTIPACK JL 4.0 5Fr catheter was advanced over the wire and used for Procedure. 13:25:06 LCA angiography performed. 13:25:30 Catheter removed. 13:26:32 SHEATH 6FR [place] (CZN240) opened to sterile field. 13:26:47 A DIAGNOSTIC AR 2 MOD 5 Fr catheter ([id number]) was advanced over the wire and used for Procedure. 13:26:54 SVG to Circ occluded. 13:27:11 INFLATOR Merit BasixCompak (EF8471) opened to sterile field. 13:27:41 RCA angiography performed. 13:27:51 Catheter removed. 13:28:19 A DIAGNOSTIC MPA-2 5Fr catheter ([id number]) was advanced over the wire and used for Procedure. 13:28:48 CHOICE PT Extra Support 182cm wire ([id number]) opened to sterile field. 13:28:56 Sheath upsized to a 6 Fr Short. 13:30:35 SVG to RCA angiography performed. 13:30:36 Catheter removed. 13:32:14 GUIDE 6FR XBLAD 3.5 catheter ([id number]) opened to sterile field. 13:32:22 Heparin Bolus 4000 units I.V. was administered by Aguilar Reynolds RN; for anticoagulation; verified with dr krishnan 13:32:41 6 Fr XBLAD 3.5 guide catheter was inserted over the wire 13:33:09 CHOICE ES 182 wire advanced. 13:33:45 Wire advanced across lesion. 13:35:02 Inflation number: 1 A EUPHORA 2.5 x 15 Balloon ([id number]) was prepped and advanced across the Mid LAD, then inflated to 19 SAMSON for 0:10 (min:sec). 13:35:34 Inflation number: 2 The EUPHORA 2.5 x 15 Balloon ([id number]) was reinflated across the Mid LAD, to 23 SAMSON for 0:10 (min:sec). 13:35:45 Balloon removed over the wire. 13:38:05 Inflation number: 3 A NC EUPHORA 3.0 x 12 balloon ([id number]) was prepped and advanced across the Mid LAD, then inflated to 24 SAMSON for 0:10 (min:sec). 13:38:37 Balloon removed over the wire. 13:39:42 GUIDE 6FR MB 1 catheter (LA6MB1) opened to sterile field. 13:40:01 Wire removed. 13:40:01 Guide catheter removed. 13:40:17 6 Fr MB 1 GUIDE guide catheter was inserted over the wire 13:41:36 CHOICE ES 182 wire advanced. 13:43:35 Cardene 300 mcg I.C. was administered by Eliazar Krishnan MD; for vasodilation; 13:44:32 Wire advanced across lesion. 13:44:33 Inflation Number: 1 A TIFFANY RX 3.5 x 18 stent ([id number]) was prepped and advanced across the Aorta Right -> Prox RCA. The stent was deployed at 13 SAMSON for 0:10 (min:sec). 13:44:48 Stent catheter was removed intact over wire. 13:44:48 Wire removed. 13:44:49 Guide catheter removed. 13:44:52 EXOSEAL 6Fr (EX600) opened to sterile field. 13:45:04 Sheath removed intact; hemostasis achieved with Exoseal to the Right Femoral artery. 13:45:07 Procedure ended.(Physican Out) 13:46:49 Fluoroscopy time 07.20 minutes. 13:47:00 Flurop Dose total: 4404 13:47:00 Fluoroscopy dose: 4404 mGy 13:47:05 Contrast amount:Isovue 300 117ml. 13:47:09 Sharps counted by scrub and verified by R.N. 13:47:10 Insertion/operative site no bleeding no hematoma. 13:47:13 Post-op/insertion site Right Femoral artery dressed using a 4 x 4 and Tegaderm. 13:47:17 Post right femoral artery:stable, soft, clean and dry 13:47:22 Post procedure: right dorsailis pedis pulse 2+ Normal; easily identifiable; not easily obliterated. 13:47:25 Post-procedure physical assessment completed. ASA score P 2 - A patient with mild systemic disease as per Eliazar Krishnan MD. 13:47:30 Post procedure rhythm: unchanged. 13:47:32 Estimated blood loss: 10 ml 13:47:35 Post procedure instruction explained to patient.Patient verbalizes understanding. 13:47:35 Patient needs reinforcement of post procedure teaching. 13:50:00 Procedure type changed to Cath procedure, Diagnostic procedure, LHC, LHC w/Coronaries w/Grafts, PCI procedure, Coronary Stent, AMI/SVG/CORRECTION OFFICER CITY OR COUNTY JAIL PTCA or Stent, SVG-BMS/KAMILA Initial, PTCA, PTCA Initial, Miscellaneous Procedures, Moderate Sedation up to 30 minutes 13:51:01 Procedure and supply charges have been captured, reviewed, submitted and are correct. 13:51:04 Procedure Complication : No complications 13:51:05 Vital chart was stopped 13:51:06 See physician's report for complete and final results. 13:51:08 Report given to Pre/Post Procedure Room. 13:51:11 Patient transfered to Pre/Post Procedure Room with Bed. 13:51:13 Procedure ended. 13:51:13 Full Disclosure recording stopped 13:51:16 End room use (Document Last) Intervention Summary Intervention Notes Time ActionType Lesion and Equipment Used Action# Pressure Duration Attributes 13:35:02 Inflate Mid LAD EUPHORA 2.5 x 1 19 00:10 balloon 15 Balloon ([id number]) 13:35:34 Reinflate Mid LAD EUPHORA 2.5 x 2 23 00:10 balloon 15 Balloon ([id number]) 13:38:05 Inflate Mid LAD NC EUPHORA 3.0 3 24 00:10 balloon x 12 balloon ([id number]) 13:44:33 Place stent Aorta Right TIFFANY RX 3.5 x 1 13 00:10 -> Prox RCA 18 stent ([id number]) Device Usage Item Name Manufacture Quantity Catalog Number Hospital Part Current M inimal Lot# / Charge Number Stock Stock Serial# Code ACIST Syringe Acist 1 97294 260997 286322 379705 2 0 (41226) Medical Systems Inc Bag Decanter Microtek 1 2001S 805613 56165 794663 5 (2002S) Medical Inc. ACIST Hand Acist 1 95348 806945 846446 695782 5 Control Medical (10242) Systems Inc ACIST Manifold Acist 1 56355 914445 224890 922175 5 (99725) Medical Systems Inc Tegaderm 4 x 4 3M 1 1626W 877921 634367 772379 5 (1626W) Medline Cath Cardinal 1 [id number] 122979 50660 065873 5 Pack Health ([id number]) SHEATH 5FR Terumo 1 BEZ909 235108 340158 070812 4 0 [place] (QTU627) DIAGNOSTIC [facility] Shreyas 1 481625 420890 632670 495478 3 0 WIRE .035 260cm J wire (272870) DIAGNOSTIC Cardinal 1 EF3014 979728 48726 974870 3 0 Multipack 5Fr Health catheter set (RC2032) PERCUTANEOUS [employer] Medical 1 Q43864 611477 325230 5 ENTRY 19GA needle MULTIPACK Cardinal 1 253035 5 Pigtail 5 Fr Health catheter MULTIPACK JL Cardinal 1 373801 5 4.0 5Fr Health catheter SHEATH 6FR Terumo 1 TWD709 887396 095057 105484 4 0 [place] (XNK795) DIAGNOSTIC AR Cardinal 1 348296P 297562 736598 217092 2 0 2 MOD 5 Fr Health catheter (660013Y) INFLATOR Merit Merit 1 DY1532 214677 942717 106573 1 5 [email or web address] Medical (FC6914) DIAGNOSTIC Cardinal 1 988217Y 574438 574868 507662 5 MPA-2 5Fr Health catheter (558675M) CHOICE PT [place] 1 [id number] 717399 975947 173696 5 Extra Support Scientific 182cm wire ([id number]) GUIDE 6FR Cardinal 1 91464054 003147 303064 979932 1 0 XBLAD 3.5 Health catheter (44949901) EUPHORA 2.5 x Medtronic 1 [id number] 517973 386105 743660 5 [id number] 15 Balloon ([id number]) NC EUPHORA 3.0 Medtronic 1 [id number] 321869 219436 901976 1 x 12 balloon ([id number]) GUIDE 6FR MB 1 Medtronic 1 LA6MB1 967874 99955 202815 1 catheter (LA6MB1) TIFFANY RX 3.5 x Medtronic 1 [id number] 674031 1780577 395155 5 [id number] 18 stent ([id number]) EXOSEAL 6Fr Cardinal 1 EX600 837015 349804 609750 1 0 (EX600) Health Signature Audit [place] Stage Time Signature Unsigned Intra-Procedure 09/27/2017 Janelle Snyder 1:52:39 PM RT(R) Signatures Monitor : Janelle Snyder Signature : RT Date : Time : [place] [address] [place] [address]
[~2017-09-27 08:10] MED LIST changes: +K-DUR20 MEQ PO
[2017-09-27] MEDS ORDERED: HUMULIN R100 U/ML SC (10:42)
[2017-09-27 10:47] VITALS: BP 97/65; Ht 157.5 cm; Wt 95.5 kg
[2017-09-27 11:09] LABS: BASOPHILS 0.2 % (0-2); EOSINOPHILS 1.9 % (0-7); HEMATOCRIT 44.3 % (42.0-54.0); HEMOGLOBIN 14.7 g/dL (13.5-17.5); IMMATURE GRANULOCYTES 0.4 % (0-5); LYMPHOCYTES 30.1 % (15-50); MCH 28.8 pg (26.0-34.0); MCHC 33.2 g/dL (31.0-37.0); MCV 86.7 fL (80.0-100.0); MEAN PLATELET VOLUME 9.8 fL (7.4-10.4); MONOCYTES 7.9 % (2-11); NEUTROPHILS 59.5 % (40-80); PLATELET COUNT 252 10x3/uL (130-400); RBC 5.11 10x6/uL (4.20-6.10); RDW 13.5 % (11.5-14.5); WBC 5.3 10x3/uL (4.8-10.8)
[2017-09-27 11:23] LABS: ANION GAP 11.4 mmol/L (8-16); CALCIUM 9.5 mg/dL (8.5-10.1); CARBON DIOXIDE 30.5 mmol/L (21.0-32.0); CREATININE - SERUM 1.5 mg/dL (0.6-1.3); POTASSIUM - SERUM 3.9 mmol/L (3.5-5.1)
== END 2017-09-27 18:50 | disposition home or self-care (01) ==
LOC: D.CATH 08:10
PROVIDERS: Internal Medicine Interventional Cardiology
DX: I25.119 Atherosclerotic heart disease of native coronary artery with unspecified angina pectoris (principal); E78.5 Hyperlipidemia, unspecified; I10 Essential (primary) hypertension; Z01.812 Encounter for preprocedural laboratory examination
CPT/HCPCS: 92920; 93459; C9604

== ENCOUNTER → 2018-05-14 07:08 | Outpatient (CLI) | payer MEDICARE, OTHER ==
[~2018-05-14] VITALS: Ht 157.5 cm; Wt 90.9 kg
--- NOTE | ~2018-05-14 | HEMODYNAMI ---
PATIENT:Amanda KENDRICK MEDICAL RECORD: [id number] : 52 LOCATION:DGIN ADMISSION DATE: 05/14/18 Generatedon:05/14/201811:34 Patient name: Amanda KENDRICK Patient #: [id number] SSN: : [birth year] Date of study: 05/14/2018 Page: Of Hemodynamic Procedure Report Patient Data Patient Demographics Procedure consent was obtained First Name: Amanda Gender: Male Last Name: AROLDO : 1950 [facility] Initial: B Age: 68 year(s) Patient #: [id number] Race: Additional ID: [id number] Contact details Address: [address] [place] [address] State: [place] City: [facility] Zip code: [address] Past Medical History Allergies Allergen Reaction Date Comments Reported Other allergy 12/27/2015 codeine, penicillins Codeine 08/17/2016 Penicillins 08/17/2016 SUSAN inhibitors 08/17/2016 Other allergy 09/27/2017 CODEINE, PCN Admission Admission Data Admission Date: 05/14/2018 Admission Time: 7:08 Admit Source: Other Height (in.): 62 BSA: 1.91 (m2) Height (cm.): 157.48 BMI: 36.65 (kg/m2) Weight (lbs.): 200.4 Weight (kg.): 90.9 Lab Results Lab Result Date: 05/14/2018 Lab Result Time: 0:00 Biochemistry Name Units Result Min Max BUN mg/dl 32 --(----)-* 7 18 Creatinine mg/dl 1.4 --(----)*- 0.6 1.3 CBC Name Units Result Min Max Hemoglobin g/dl 14.4 --(*---)-- 13.5 17.5 Procedure Procedure Types Cath Procedure Diagnostic Procedure LHC LHC w/Coronaries w/Grafts PCI Procedure AMI/SVG/FINANCIAL SERVICES CONSULTANT PTCA or Stent SVG-BMS/KAMILA Initial Procedure Description Procedure Date Procedure Date: 05/14/2018 Procedure Start Time: 11:12 Procedure End Time: 11:33 Procedure Staff Name Function Eliazar Krishnan MD Performing Physician Rajesh Robledo RT Scrub Srinivasa Seo RN Nurse Frederic Moody RT Monitor Procedure Data Cath Procedure Fluoroscopy Diagnostic fluoroscopy Total fluoroscopy Time: 5.3 time: 5.3 min min Diagnostic fluoroscopy Total fluoroscopy dose: 373 dose: 373 mGy mGy Contrast Material Contrast Material Type Amount (ml) Isovue 300 103 Entry Location Entry Primary Successful Side Size Upsize Upsize Entry Closure Succes sful Closure Location (Fr) 1 (Fr) 2 (Fr) Remarks Device Remarks Femoral Right 5 Fr 6 Fr artery Short Estimated blood loss: 10 ml Diagnostic catheters Device Type Used For End Catheter Placement MULTIPACK Pigtail 5 Fr Procedure catheter MULTIPACK JL 4.0 5Fr Procedure catheter DIAGNOSTIC AR2 MOD 5 Fr Procedure catheter ([id number]) DIAGNOSTIC MPA-2 5Fr Procedure catheter ([id number]) Procedure Complications No complications Procedure Medications Medication Administration Route Dosage 0.9% NaCl I.V. 100 ml/hr Oxygen 2 l/min Heparin Flush Bag added to field 2 bags (1000units/500ml NS) Lidocaine 2% added to field 20 Versed I.V. 2 mg Fentanyl I.V. 100 mcg Versed I.V. 1 mg Heparin Bolus I.V. 4000 units Plavix P.O. 75 mg Hemodynamics Rest BSA: 1.91 (m2) HGB: 14.4 (g/dl) O2 Consumption: Estimated: 216.32 (ml/min) O2 Co nsumption indexed: Estimated:113.26 (ml/min/m) Heart Rate: 62 (bpm) Snapshots Pre Cath Intra NCS Post Cath Vital Signs Time Heart Resp SPO2 etCO2 NIBP (mmHg) Rhythm Pain Sedation Rate (ipm) (%) (mmHg) Status Level (bpm) 10:18:46 58 16 96 16.5 127/70(106) NSR 0 (11) 10(A) , No pain 10:22:53 55 13 96 15.7 123/73(86) NSR 0 (11) 10(A) , No pain 10:27:12 62 12 97 27 124/68(96) NSR 0 (11) 10(A) , No pain 10:31:23 51 12 96 41.4 113/69(95) NSR 0 (11) 10(A) , No pain 10:35:35 58 13 97 38.3 118/71(84) NSR 0 (11) 10(A) , No pain 10:39:53 58 16 97 0 112/64(77) NSR 0 (11) 10(A) , No pain 10:44:07 59 14 97 0 109/66(80) NSR 0 (11) 10(A) , No pain 10:48:21 63 15 97 33.8 111/65(96) NSR 0 (11) 10(A) , No pain 10:52:42 62 16 98 36.1 116/51(80) NSR 0 (11) 10(A) , No pain 10:56:56 59 17 97 42.9 125/68(100) NSR 0 (11) 10(A) , No pain 11:01:05 55 14 97 28.6 112/59(91) NSR 0 (11) 10(A) , No pain 11:05:19 57 12 97 32.3 107/59(79) NSR 0 (11) 10(A) , No pain 11:09:27 60 11 97 31.5 104/57(87) NSR 0 (11) 10(A) , No pain 11:13:39 59 11 96 33.8 108/52(76) NSR 0 (11) 10(A) , No pain 11:17:51 59 13 96 39.8 115/66(93) NSR 0 (11) 9(A) , No pain 11:22:05 61 13 96 32.3 105/61(76) NSR 0 (11) 9(A) , No pain 11:26:13 59 13 97 32.3 95/58(68) NSR 0 (11) 10(A) , No pain 11:30:22 61 14 96 43.6 94/59(78) NSR 0 (11) 10(A) , No pain Medications Time Medication Route Dose Verified Delivered Reason Notes Effectiveness by by 10:16:58 0.9% NaCl I.V. 100 Srinivasa Srinivasa Per physician ml/hr Gabbi Seo RN RN 10:17:23 Oxygen 2 Srinivasa Srinivasa Per physician l/min Gabbi Seo RN RN 10:17:37 Heparin Flush added 2 Srinivasa Srinivasa used for Bag to bags Gabbi Seo procedure (1000units/500ml field RN RN NS) 10:17:51 Lidocaine 2% added 20ml Srinivasa Srinivasa for local to vial Gabbi Seo anesthetic field RN RN 10:58:51 Versed I.V. 2 mg Srinivasa Srinivasa for sedation Gabbi Seo RN RN 10:59:01 Fentanyl I.V. 100 Srinivasa Srinivasa for sedation mcg Gabbi Seo RN RN 11:15:41 Versed I.V. 1 mg Srinivasa Srinivasa for sedation Gabbi Seo RN RN 11:22:37 Heparin Bolus I.V. 4000 Srinivasa Srinivasa for units Gabbi Seo anticoagulation RN RN 11:30:42 Plavix P.O. 75 mg Srinivasa Srinivasa for Gabbi Seo antiplatelet RN RN therapy Procedure Log Time Note 9:18:26 Informed consent obtained and on chart 9:18:28 Admit Source: Other 9:19:17 Diagnostic Cath status Elective 9:19:18 Time tracking: Regular hours (M-F 7:00 - 5:00) 9:19:22 Plan of Care:Hemodynamics will remain stable., Cardiac rhythm will remain stable., Comfort level will be maintained., Respiratory function will remain adequate., Patient/ family verbilizes understanding of procedure., Procedure tolerated without complication., Recovers from procedure without complications.. 9:19:51 H&P Date Dictated: 04/24/2018 Within 30 days and on chart., H&P Addendum completed by physician on day of procedure. (MUST COMPLETE FOR ALL OUTPATIENTS). 9:50:22 Srinivasa Seo RN sent for patient. Start room use. 10:06:16 Patient received from Pre/Post Procedure Room to CCL 3 Alert and oriented. Tansferred to table in Supine position. 10:06:17 Warm blankets applied, and jacinto hugger turned on for patient comfort. 10:06:17 Correct patient and procedure confirmed by team. 10:06:18 ECG and BP/O2 sat monitors applied to patient. 10:16:58 0.9% NaCl 100 ml/hr I.V. was administered by Srinivasa Seo RN; Per physician; 10:17:23 Oxygen 2 l/min was administered by Srinivasa Seo RN; Per physician; 10:17:34 Vital chart was started 10:17:36 Baseline sample Acquired. 10:17:37 Heparin Flush Bag (1000units/500ml NS) 2 bags added to field was administered by Srinivasa Seo RN; used for procedure; 10::43 Rhythm: sinus rhythm 10::44 Full Disclosure recording started 10:17:46 Pre-procedure instructions explained to patient. 10:17:46 Pre-op teaching completed and patient verbalized understanding. 10:17:50 Family in waiting room. 10:17:51 Lidocaine 2% 20ml vial added to field was administered by Srinivasa Seo RN; for local anesthetic; 10:17:51 Patient NPO since Midnight. 10:17:54 Is the patient allergic to Iodine/contrast media? No. 10:17:57 Is patient on blood thinner?Yes 10:18:04 ACC The patient was administered the following blood thiners within the last 24 hours: ACCPlavix 10:18:07 Patient diabetic? Yes. 10:18:08 If diabetic: On Metformin? Yes 10:18:10 If on Metformin: Last Dose? 05/13/2018 10:21:28 Previous problem with sedation/anesthesia? No ? 10:21:30 Snore? Yes 10:21:31 Sleep apnea? Yes 10:21:32 Deviated septum? No 10:21:32 Opens mouth fully? Yes 10:21:33 Sticks out tongue? Yes 10:21:37 Airway obstruction? No ? 10:21:40 Dentures? Yes IN 10:21:43 Pre procedure: right dorsailis pedis pulse 1+ Palpable, but thready & weak; easily obliterated 10:21:44 Patient pain scale 0/10 ?. 10:21:49 IV patent on arrival in left forearm with 0.9% NaCl at O. 10:21:51 Lab results completed and on chart. 10:21:55 Right groin area was prepped with chlora-prep and draped in sterile fashion 10:21:56 Alarms reviewed by R. N. 10:21:57 Sharps counted by scrub and verified by R.N. 10:22:07 Use device set Femoral Dx 10:22:32 Tegaderm 4 x 4 (1626W) opened to sterile field. 10:22:33 ACIST Manifold (30905) opened to sterile field. 10:22:34 ACIST Hand Control (68170) opened to sterile field. 10:22:35 ACIST Syringe (50408) opened to sterile field. 10:22:36 Bag Decanter (2002S) opened to sterile field. 10:22:36 Medline Cath Pack (PREB03292) opened to sterile field. 10:22:44 DIAGNOSTIC WIRE .035 260cm J wire (565430) opened to sterile field. 10:22:46 SHEATH Prelude 5Fr 0.035 (HAH-9O-73-035) opened to sterile field. 10:22:47 DIAGNOSTIC Multipack 5Fr catheter set (RP8089) opened to sterile field. 10:33:28 Patient Height : 62 inches 10:33:34 Patient Weight : 200.4 lbs 10:33:55 Lab Result : Hemoglobin 14.4 g/dl 10:33:55 Lab Result : Creatinine 1.4 mg/dl 10:33:55 Lab Result : BUN 32 mg/dl 10:34:35 Case delayed due to physician working in 2. 10:57:02 Zero performed for pressure channel P1 10:58:16 --------ALL STOP TIME OUT------ 10:58:16 Final Timeout: patient, procedure, and site verified with staff and physician. All members of the team are in agreement. 10:58:19 Right groin site verified by team. 10:58:21 Physical assessment completed. ASA score P 2 - A patient with mild systemic disease as per Eliazar Krishnan MD. 10:58:24 Sedation plan: IV Moderate Sedation Medication:Versed, Fentanyl 10:58:51 Versed 2 mg I.V. was administered by Srinivasa Seo RN; for sedation; 10:59:01 Fentanyl 100 mcg I.V. was administered by Srinivasa Seo RN; for sedation; 11:12:42 Procedure started. 11:12:44 Local anesthetic to right femoral artery with Lidocaine 2% by Eliazar Krishnan MD.INITIAL ACCESS ONLY 11:13:42 A 5 Fr sheath was inserted into the Right Femoral artery 11:13:58 A MULTIPACK Pigtail 5 Fr catheter was advanced over the wire and used for Procedure. 11:15:25 LV angiography performed. 11:15:26 LV gram done using MARSHALL 11:15:31 EF : 50 % 11:15:41 Versed 1 mg I.V. was administered by Srinivasa Seo RN; for sedation; ::41 Injector settings: Ml/sec: 10, Volume: 20, 11:15:43 Catheter removed. 11:15:48 A MULTIPACK JL 4.0 5Fr catheter was advanced over the wire and used for Procedure. 11:16:01 LCA angiography performed. 11:16:04 Catheter removed. 11:16:45 A DIAGNOSTIC AR2 MOD 5 Fr catheter ([id number]) was advanced over the wire and used for Procedure. 11:16:53 RCA angiography performed. 11:17:39 SVG to Circ occluded. 11:17:48 Catheter removed. 11:18:14 Use device set TAU PCI 11:18:24 SHEATH Prelude 6Fr 0.035 (WXY-5P-05-035) opened to sterile field. 11:18:27 CHOICE PT Extra Support 182cm wire ([id number]) opened to sterile field. 11:18:29 INFLATOR Merit BasixCompak (IB9105) opened to sterile field. 11:18:56 Sheath upsized to a 6 Fr Short. 11:19:00 A DIAGNOSTIC MPA-2 5Fr catheter ([id number]) was advanced over the wire and used for Procedure. 11:20:16 SVG to RCA angiography performed. 11:20:32 Catheter removed. 11:20:45 GUIDE 6FR MB 1 catheter (LA6MB1) opened to sterile field. 11:22:37 Heparin Bolus 4000 units I.V. was administered by Srinivasa Seo RN; for anticoagulation; 11:23:09 6 Fr MB 1 guide catheter was inserted over the wire 11:24:19 CPTXS wire advanced. 11:24:28 Wire advanced across lesion. 11:26:05 Place stent Inflation Number: 1 A TIFFANY RX 4.0 x 22 stent ([id number]) was prepped and advanced across the Aorta Right -> Dist RCA. The stent was deployed at 19 SAMSON for 0:10 (min:sec). 11:26:54 EXOSEAL 6Fr (EX600) opened to sterile field. 11:27:18 Stent catheter was removed intact over wire. 11:27:19 Wire removed. 11:27:20 Guide catheter removed. 11:27:40 Procedure ended.(Physican Out) 11:30:14 Fluoroscopy time 05.30 minutes. 11:30:20 Fluoroscopy dose: 373 mGy 11:30:20 Flurop Dose total: 373 11::23 Contrast amount:Isovue 300 103ml. 11:30:25 Sharps counted by scrub and verified by R.N. 11:30:26 Insertion/operative site no bleeding no hematoma. 11:30:28 Post Procedure Pulses reassessed and unchanged 11::32 Post-procedure physical assessment completed. ASA score P 2 - A patient with mild systemic disease as per Eliazar Krishnan MD. 11:30:35 Post procedure rhythm: unchanged. 11::37 Estimated blood loss: 10 ml 11::39 Post procedure instruction explained to patient.Patient verbalizes understanding. 11::40 Patient needs reinforcement of post procedure teaching. 11:30:42 Plavix 75 mg P.O. was administered by Srinivasa Seo RN; for antiplatelet therapy; 11:30:51 Procedure type changed to Cath procedure, Diagnostic procedure, LHC, LHC w/Coronaries w/Grafts, PCI procedure, AMI/SVG/FINANCIAL SERVICES CONSULTANT PTCA or Stent, SVG-BMS/KAMILA Initial 11:30:54 Procedure and supply charges have been captured, reviewed, submitted and are correct. 11:30:58 Procedure Complication : No complications 11:33:27 Vital chart was stopped 11:33:28 See physician's report for complete and final results. 11:33:30 Report given to Pre/Post Procedure Room. 11:33:32 Patient transfered to Pre/Post Procedure Room with Stretcher. 11:33:35 Procedure ended. 11:33:35 Full Disclosure recording stopped 11:33:39 End room use (Document Last) Intervention Summary Intervention Notes Time ActionType Lesion and Equipment Used Action# Pressure Duration Attributes 11:26:05 Place stent Aorta Right TIFFANY RX 4.0 x 1 19 00:10 -> Dist RCA 22 stent ([id number]) Device Usage Item Name Manufacture Quantity Catalog Number Hospital Part Current Minimal Lot# / Charge Number Stock Stock Serial# Code Tegaderm 4 x 4 3M 1 [id number] [id number] 506191 5 (1626W) ACIST Manifold Acist 1 55078 699266 510870 874594 5 (76127) Medical Systems Inc ACIST Hand Acist 1 10338 008751 687008 672534 5 Control (61551) [employer] Inc ACIST Syringe Acist 1 35292 631125 632769 966087 20 (86943) Medical Systems Inc Bag Decanter Microtek 1 2001S 513149 59068 956662 5 (2001S) Medical Inc. Medline Cath Cardinal 1 [id number] 687986 88877 788111 5 Pictrition App Health ([id number]) DIAGNOSTIC WIRE [facility] Shreyas 1 750872 082725 851787 751027 30 .035 260cm J wire (849555) SHEATH Prelude Merit 1 NJB-6X-84-035 167013 779806 551300 5 5Fr 0.035 Medical (GUC-7C-17-035) DIAGNOSTIC Cardinal 1 WN0972 366808 56306 607456 30 Multipack 5Fr Health catheter set (EQ1709) MULTIPACK Cardinal 1 582735 5 Pigtail 5 Fr Health catheter MULTIPACK JL Cardinal 1 516468 5 4.0 5Fr Health catheter DIAGNOSTIC AR2 Cardinal 1 [id number] 395247 023817 682860 20 MOD 5 Fr Health catheter (179963U) DIAGNOSTIC Cardinal 1 [id number] 995786 271636 145736 5 MPA-2 5Fr Health catheter (668824J) SHEATH Prelude Merit 1 AFI-8P-39-35 652251 7825401 898989 5 6Fr 0.035 Medical (IEI-7U-45-035) CHOICE PT Extra [place] 1 [id number] 974860 454901 174790 5 Support 182cm Scientific wire ([id number]) INFLATOR Merit Merit 1 QE4608 933612 804562 108039 15 GroupVox Medical (KH0009) GUIDE 6FR MB 1 Medtronic 1 LA6MB1 178825 50448 503222 1 catheter (LA6MB1) TIFFANY RX 4.0 x Medtronic 1 [id number] 232945 6616234 151989 5 [id number] 22 stent ([id number]) EXOSEAL 6Fr Cardinal 1 EX600 977270 104728 402325 10 (EX600) Health Signature Audit Thiells Stage Time Signature Unsigned Intra-Procedure 05/14/2018 Frederic Moody 11:34:01 AM RT(R) Signatures Monitor : Frederic Moody RT Signature : Date : Time : [id number] [place] [address]
--- NOTE | ~2018-05-14 | OP ---
PATIENT NAME: Amanda KENDRICK MEDICAL RECORD: [id number] :52 LOCATION:D.CAT ADMISSION DATE: SURGEON: PAOLA SANDOVAL MD DATE OF OPERATION: 05/14/2018 PROCEDURES: 1. PTCA stent vein graft to RCA. 2. Left heart catheterization. 3. Selective coronary angiography. 4. Left ventriculogram. 5. Vein graft angiography. INDICATION: Angina and coronary artery disease. PROCEDURE PERFORMED: After informed consent was obtained and after a detailed description of risks, benefits as well as alternative therapies, the patient elected to proceed with angiogram and angioplasty. The right femoral area was prepped and draped in normal sterile fashion. Right femoral artery was cannulated via modified Seldinger technique with placement of 6-Scottish sheath. All catheters exchanged through this sheath. FINDINGS: The left ventriculogram was performed in standard 30-degree MARSHALL view does reveal preserved LV function, ejection fraction 50%. SELECTIVE CORONARY ANGIOGRAPHY: 1. Left main showed no significant angiographic disease. 2. Left anterior descending has previously placed stents which have 95% in-stent restenosis in the mid vessel. 3. Left circumflex is closed. 4. Vein graft to the left circumflex is closed. 5. Right coronary artery is closed in the mid vessel. 6. Vein graft to the right coronary artery is patent; however, there is 80% stenosis in the mid shaft. PTCA STENT OF THE RIGHT CORONARY VEIN GRAFT: The stent used was a 3.5 x 18 mm Pierpont. Result was 0% residual stenosis. OVERALL IMPRESSION: Successful percutaneous transluminal coronary angioplasty stent of the vein graft to the right coronary artery going from 80% initial stenosis to 0% residual. PLAN: For laser atherectomy, PTCA stent of the [place] LAD for the in-stent restenosis in that territory. TRANSINT:[id number] Voice Confirmation ID: [id number] DOCUMENT ID: [id number] PAOLA SANDOVAL MD at 0924 CC: [id number] DICTATION DATE: 05/19/18 1000 BELL STAFF: 05/19/18 1113 DEP CLI 05/14/18 [place] [address]
[~2018-05-14 07:08] MED LIST changes: +HUMULIN R100 U/ML SC; +LIPITOR80 MG PO; +PROTONIX20 MG PO; +VALIUM5 MG PO
[2018-05-14 08:01] LABS: BASOPHILS 0.1 % (0-2); EOSINOPHILS 1.3 % (0-7); HEMATOCRIT 43.2 % (42.0-54.0); HEMOGLOBIN 14.4 g/dL (13.5-17.5); IMMATURE GRANULOCYTES 0.3 % (0-5); MCHC 33.3 g/dL (31.0-37.0); MCV 83.9 fL (80.0-100.0); MEAN PLATELET VOLUME 10.2 fL (7.4-10.4); MONOCYTES 7.8 % (2-11); NEUTROPHILS 65.5 % (40-80); RBC 5.15 10x6/uL (4.20-6.10); RDW 14.2 % (11.5-14.5); WBC 7.7 10x3/uL (4.8-10.8)
[2018-05-14 08:03] VITALS: BP 127/72; Ht 157.5 cm; Wt 90.9 kg
[2018-05-14 08:16] LABS: ANION GAP 11.3 mmol/L (8-16); CALCIUM 9.6 mg/dL (8.5-10.1); CARBON DIOXIDE 29.8 mmol/L (21.0-32.0); CREATININE - SERUM 1.4 mg/dL (0.6-1.3); PLATELET COUNT 308 10x3/uL (130-400); POTASSIUM - SERUM 4.1 mmol/L (3.5-5.1)
== END | disposition home or self-care (01) ==
LOC: D.CATH 07:08
PROVIDERS: Internal Medicine Interventional Cardiology
DX: I25.119 Atherosclerotic heart disease of native coronary artery with unspecified angina pectoris (principal); I25.719 Atherosclerosis of autologous vein coronary artery bypass graft(s) with unspecified angina pectoris; T82.855A Stenosis of coronary artery stent, initial encounter; Z01.812 Encounter for preprocedural laboratory examination
CPT/HCPCS: 93459; C9604

== ENCOUNTER 2018-05-19 06:36 | Outpatient (CLI) | payer MEDICARE, OTHER ==
[~2018-05-19] VITALS: Ht 157.5 cm; Wt 90.9 kg
--- NOTE | ~2018-05-19 | OP ---
PATIENT NAME: Amanda KENDRICK MEDICAL RECORD: [id number] :52 LOCATION:D.CAT ADMISSION DATE: SURGEON: PAOLA SANDOVAL MD DATE OF OPERATION: 05/19/2018 PROCEDURES: 1. Laser atherectomy LAD. 2. PTCA LAD. 3. Selective coronary angiography. INDICATION: Angina and coronary artery disease. PROCEDURE IN DETAIL: After informed consent was obtained and after a detailed description of risks, benefits as well as alternative therapies, the patient elected to proceed with angiogram and angioplasty. The right femoral area was prepped and draped in normal sterile fashion. Right femoral artery was cannulated via modified Seldinger technique with placement of 6-[place] sheath. All catheters exchanged through this sheath. FINDINGS: The left anterior descending has multiple previously placed stents. There is 95% in-stent restenosis in the mid distal vessel. This was addressed with a 0.9 laser catheter, multiple passes were made at 80/40. Ballooning was undertaken with a 3.5 balloon to 21 atmospheres. Result was 0% residual stenosis. OVERALL IMPRESSION: Successful laser atherectomy, PTCA for in-stent restenosis of the LAD going from 95% initial stenosis to 0% residual. TRANSINT:[id number] Voice Confirmation ID: [id number] DOCUMENT ID: [id number] PAOLA SANDOVAL MD at 0924 CC: [id number] DICTATION DATE: 05/19/18 1019 STOPE MINER: 05/19/18 1158 DEP CLI 05/19/18 [id number] [place] [address]
--- NOTE | ~2018-05-19 | HEMODYNAMI ---
PATIENT:Amanda KENDRICK MEDICAL RECORD: [id number] : 52 LOCATION:[facility] ADMISSION DATE: 05/19/18 Generatedon:05/19/201810:22 Patient name: Amanda KENDRICK Patient #: [id number] SSN: : [birth year] Date of study: 05/19/2018 Page: Of Hemodynamic Procedure Report Patient Data Patient Demographics Procedure consent was obtained First Name: Amanda Gender: Male Last Name: AROLDO : 1950 [facility] Initial: B Age: 68 year(s) Patient #: [id number] Race: Additional ID: [id number] Contact details Address: [address] [place] [address] State: [place]: [facility] [place] Zip code: [address] Past Medical History Allergies Allergen Reaction Date Comments Reported Other allergy 12/27/2015 codeine, penicillins Codeine 08/17/2016 Penicillins 08/17/2016 SUSAN inhibitors 08/17/2016 Other allergy 09/27/2017 CODEINE, PCN Other allergy 05/19/2018 CODEINE, PCN Admission Admission Data Admission Date: 05/19/2018 Admission Time: 6:36 Lab Results Lab Result Date: 05/19/2018 Lab Result Time: 0:00 Biochemistry Name Units Result Min Max BUN mg/dl 28 --(----)-* 7 18 Creatinine mg/dl 1.4 --(----)*- 0.6 1.3 CBC Name Units Result Min Max Hemoglobin g/dl 13.3 -*(----)-- 13.5 17.5 Procedure Procedure Types Cath Procedure Diagnostic Procedure Sedation Charges Moderate Sedation up to 15 minutes PCI Procedure Coronary Atherectomy Atherectomy w/PTCA Coronary Initial Procedure Description Procedure Date Procedure Date: 05/19/2018 Procedure Start Time: 10:04 Procedure End Time: 10:17 Procedure Staff Name Function Eliazar Krishnan MD Performing Physician Janelle Snyder RT Monitor Maximo Melton RT Scrub Aguilar Reynolds RN Nurse Tisha Farley RN Nurse Procedure Data Cath Procedure Fluoroscopy Diagnostic fluoroscopy Total fluoroscopy Time: 0 time: 0 min min Diagnostic fluoroscopy Total fluoroscopy dose: 534 dose: 534 mGy mGy Contrast Material Contrast Material Type Amount (ml) Isovue 300 63 Entry Location Entry Primary Successful Side Size Upsize Upsize Entry Closure Succes sful Closure Location (Fr) 1 (Fr) 2 (Fr) Remarks Device Remarks Femoral Right 6 Fr Exoseal artery Short Estimated blood loss: 10 ml Procedure Complications No complications Procedure Medications Medication Administration Route Dosage Oxygen etCO2 Nasal cannula 2 l/min Lidocaine 2% added to field 20 Heparin Flush Bag added to field 2 bags (1000units/500ml NS) 0.9% NaCl I.V. 100 ml/hr Versed I.V. 2 mg Fentanyl I.V. 100 mcg Heparin Bolus I.V. 5000 units Hemodynamics Rest HGB: 13.3 (g/dl) Heart Rate: 60 (bpm) Snapshots Pre Cath Intra NCS Post Cath Vital Signs Time Heart Resp SPO2 etCO2 NIBP (mmHg) Rhythm Pain Sedation Rate (ipm) (%) (mmHg) Status Level (bpm) 9:49:55 63 20 97 40 148/79(117) NSR 0 (11) 10(A) , No pain 9:54:17 61 19 99 41 165/95(141) NSR 0 (11) 10(A) , No pain 9:58:39 56 10 99 28.5 132/62(103) NSR 0 (11) 10(A) , No pain 10:02:55 56 12 98 23.2 130/72(92) NSR 0 (11) 9(A) , No pain 10:07:13 62 12 99 26.2 139/78(101) NSR 0 (11) 9(A) , No pain 10:11:29 61 11 98 25.5 121/68(85) NSR 0 (11) 9(A) , No pain 10:15:45 64 11 98 33.7 129/74(90) NSR 0 (11) 10(A) , No pain Medications Time Medication Route Dose Verified Delivered Reason Notes Effectiveness by by 9:53:24 Oxygen etCO2 2 Eliazar Sheikh used for Nasal l/min Eulogio Reynolds gold prospector cannula 9:53:38 Lidocaine 2% added 20ml Eliazar Perea for local to vial Eulogio Krishnan MD anesthetic field 9:53:44 Heparin Flush added 2 Eliazar Perea used for Bag to bags Eulogio Krishnan MD procedure (1000units/500ml field NS) 9:53:54 0.9% NaCl I.V. 100 Eliazar Sheikh Per physician ml/hr Eulogio Reynolds RN 9:59:06 Versed I.V. 2 mg Eliazar Sheikh for sedation Eulogio Reynolds RN 9:59:15 Fentanyl I.V. 100 Eliazar Wolfie for sedation mcg Eulogio Reynolds RN 10:06:29 Heparin Bolus I.V. 5000 Eliazar Tisha for units Eulogio Farley anticoagulation information and data architect analyst Log Time Note 9:40:00 Maximo Suit RT(R) sent for patient. Start room use. 9:40:01 Time tracking: Regular hours (M-F 7:00 - 5:00) 9:40:06 Plan of Care:Hemodynamics will remain stable., Cardiac rhythm will remain stable., Comfort level will be maintained., Respiratory function will remain adequate., Patient/ family verbilizes understanding of procedure., Procedure tolerated without complication., Recovers from procedure without complications.. 9:40:12 Signed procedure consent form obtained from patient. 9:42:13 Patient received from Pre/Post Procedure Room to CCL 1 Alert and oriented. Tansferred to table in Supine position. 9:42:14 Warm blankets applied, and jacinto hugger turned on for patient comfort. 9:42:15 Correct patient and procedure confirmed by team. 9:42:16 ECG and BP/O2 sat monitors applied to patient. 9:48:41 Vital chart was started 9:48:42 Baseline sample Acquired. 9:48:47 Rhythm: sinus rhythm 9:48:49 Full Disclosure recording started 9:50:10 Pre-procedure instructions explained to patient. 9:50:10 Pre-op teaching completed and patient verbalized understanding. 9:50:12 Family in waiting room. 9:50:13 Patient NPO since Midnight. 9:50:23 Patient allergic to Other allergyCODEINE, PCN 9:51:27 Is the patient allergic to Iodine/contrast media? No. 9:51:29 Is patient on blood thinner?Yes 9:51:31 ACC The patient was administered the following blood thiners within the last 24 hours: ACCPlavix 9:51:33 Patient diabetic? Yes. 9:51:34 If diabetic: On Metformin? Yes 9:51:41 If on Metformin: Last Dose? 05/15/2018 9:52:08 Previous problem with sedation/anesthesia? No ? 9:52:10 Snore? Yes 9:52:11 Sleep apnea? Yes 9:52:12 Deviated septum? No 9:52:13 Opens mouth fully? Yes 9:52:14 Sticks out tongue? Yes 9:52:15 Airway obstruction? No ? 9:52:18 Dentures? Yes IN 9:53:24 Oxygen 2 l/min etCO2 Nasal cannula was administered by Aguilar Reynolds RN; used for procedure; 9:53:38 Lidocaine 2% 20ml vial added to field was administered by Eliazar Krishnan MD; for local anesthetic; 9:53:44 Heparin Flush Bag (1000units/500ml NS) 2 bags added to field was administered by Eliazar Krishnan MD; used for procedure; 9:53:54 0.9% NaCl 100 ml/hr I.V. was administered by Aguilar Reynolds RN; Per physician; 9:55:20 Pre procedure: right dorsailis pedis pulse 2+ Normal; easily identifiable; not easily obliterated 9:55:22 Patient pain scale 0/10 ?. 9:55:26 IV patent on arrival in left hand with 0.9% NaCl at [facility]. 9:55:48 Lab Result : BUN 28 mg/dl 9:55:48 Lab Result : Creatinine 1.4 mg/dl 9:55:48 Lab Result : Hemoglobin 13.3 g/dl 9:55:50 Lab results completed and on chart. 9:55:53 Right groin area was prepped with chlora-prep and draped in sterile fashion 9:55:53 Alarms reviewed by R. N. 9:55:54 Sharps counted by scrub and verified by R.N. 9:55:56 --------ALL STOP TIME OUT------ 9:55:56 Final Timeout: patient, procedure, and site verified with staff and physician. All members of the team are in agreement. 9:55:57 Right groin site verified by team. 9:56:00 Physical assessment completed. ASA score P 2 - A patient with mild systemic disease as per Eliazar Krishnan MD. 9:56:03 Sedation plan: IV Moderate Sedation Medication:Versed, Fentanyl 9:56:55 Use device set CATH PACK 9:56:56 ACIST Syringe (85409) opened to sterile field. 9:56:56 ACIST Hand Control (75216) opened to sterile field. 9:56:57 ACIST Manifold (20731) opened to sterile field. 9:56:57 Medline Cath Pack ([id number]) opened to sterile field. 9:56:58 Bag Decanter (2002S) opened to sterile field. 9:56:58 DIAGNOSTIC WIRE .035 260cm J wire (153206) opened to sterile field. 9:57:12 SHEATH 6FR [place] ([id number]) opened to sterile field. 9:57:12 INFLATOR Merit BasixCompak ([id number]) opened to sterile field. 9:57:13 CHOICE PT Extra Support 182cm wire ([id number]) opened to sterile field. 9:59:06 Versed 2 mg I.V. was administered by Aguilar Reynolds RN; for sedation; 9:59:15 Fentanyl 100 mcg I.V. was administered by Aguilar Reynolds RN; for sedation; 10:00:44 H&P Date Dictated: 05/19/2018 Within 30 days and on chart., H&P Addendum completed by physician on day of procedure. (MUST COMPLETE FOR ALL OUTPATIENTS). 10:02:16 GUIDE 6FR XBLAD 3.5 catheter ([id number]) opened to sterile field. 10:04:00 Procedure started. 10:04:06 Zero performed for pressure channel P1 10:04:13 Local anesthetic to right femoral artery with Lidocaine 2% by Eliazar Krishnan MD.INITIAL ACCESS ONLY 10:04:58 A 6 Fr Short sheath was inserted into the Right Femoral artery 10:05:21 6 Fr XBLAD 3.5 guide catheter was inserted over the wire 10:06:29 Heparin Bolus 5000 units I.V. was administered by Tisha Farley RN; for anticoagulation; 10:07:25 CHOICE ES 182 wire advanced. 10:08:26 Inflate balloon Inflation number: 1 A EUPHORA 3.5 x 15 Balloon ([id number]) was prepped and advanced across the Mid LAD, then inflated to 17 SAMSON for 0:00 (min:sec). 10:08:34 Inflation number: 2 The EUPHORA 3.5 x 15 Balloon ([id number]) was reinflated across the Mid LAD, to 21 SAMSON for 0:10 (min:sec). 10:08:44 Balloon removed over the wire. 10:08:56 LASER ELCA 0.9 Rx atherectomy catheter (628774) opened to sterile field. 10:10:05 Laser pass to mLAD with Fluence of 80 and Rate of 40. 10:12:37 Laser catheter removed. 10:14:07 Inflation number: 3 The EUPHORA 3.5 x 15 Balloon ([id number]) was reinflated across the Mid LAD, to 21 SAMSON for 0:10 (min:sec). 10:14:42 Balloon removed over the wire. 10:14:43 Wire removed. 10:14:43 Guide catheter removed. 10:15:02 EXOSEAL 6Fr (EX600) opened to sterile field. 10:15:14 Laser total pulses delivered: 1430 10:15:18 Laser total treatment time: 0 minutes 35 seconds 10:15:34 Sheath removed intact; hemostasis achieved with Exoseal to the Right Femoral artery. 10:16:08 Procedure ended.(Physican Out) 10:16:19 Fluoroscopy time 00.00 minutes. 10:16:23 Flurop Dose total: 534 10:16:23 Fluoroscopy dose: 534 mGy 10:16:27 Contrast amount:Isovue 300 63ml. 10:16:28 Sharps counted by scrub and verified by R.N. 10:16:31 Post-op/insertion site Right Femoral artery dressed using a 4 x 4 and Tegaderm. 10:16:34 Post-procedure physical assessment completed. ASA score P 2 - A patient with mild systemic disease as per Eliazar Krishnan MD. 10:16:39 Post procedure rhythm: unchanged. 10:16:42 Estimated blood loss: 10 ml 10:16:44 Post procedure instruction explained to patient.Patient verbalizes understanding. 10:16:44 Patient needs reinforcement of post procedure teaching. 10:17:15 Procedure type changed to Cath procedure, Diagnostic procedure, Sedation Charges, Moderate Sedation up to 15 minutes, PCI procedure, Coronary Atherectomy, Atherectomy w/PTCA Coronary Initial 10:17:35 Procedure and supply charges have been captured, reviewed, submitted and are correct. 10:17:38 Procedure Complication : No complications 10:17:39 Vital chart was stopped 10:17:40 See physician's report for complete and final results. 10:17:41 Report given to Pre/Post Procedure Room. 10:17:43 Patient transfered to Pre/Post Procedure Room with Bed. 10:17:45 Procedure ended. 10:17:45 Full Disclosure recording stopped 10:17:47 End room use (Document Last) Intervention Summary Intervention Notes Time ActionType Lesion and Equipment Action# Pressure Duration Attributes Used 10:08:26 Inflate Mid LAD EUPHORA 1 17 00:00 balloon 3.5 x 15 Balloon ([id number]) 10:08:34 Reinflate Mid LAD EUPHORA 2 21 00:10 balloon 3.5 x 15 Balloon ([id number]) 10:14:07 Reinflate Mid LAD EUPHORA 3 21 00:10 balloon 3.5 x 15 Balloon ([id number]) Device Usage Item Name Manufacture Quantity Catalog Number Hospital Part Current Minim al Lot# / Charge Number Stock Stock Serial# Code ACIST Acist 1 65650 293519 514699 566846 20 Syringe Medical (38358) Systems Inc ACIST Hand Acist 1 97265 376099 195894 836102 5 Control Medical (10177) Systems Inc ACIST Acist 1 69855 465523 450945 849013 5 Manifold Medical (15936) Systems Inc Medline Cardinal 1 [id number] 352281 49007 505953 5 Cath [facility] ([id number]) Bag Microtek 1 2001S 714828 81978 810198 5 Decanter Medical Inc. () DIAGNOSTIC St Shrey[place] 1 691861 705274 538543 603872 30 WIRE .035 260cm J wire (301239) SHEATH 6FR Terumo 1 [id number] 052941 988317 290989 40 [place] (DGV270) INFLATOR Merit 1 DP0963 379924 265543 671666 15 Merit Medical BasixCompak (IK8563) CHOICE PT [place] 1 [id number] 674188 500661 202452 5 Extra Scientific Support 182cm wire ([id number]) GUIDE 6FR Cardinal 1 [id number] 077839 229563 783323 10 XBLAD 3.5 Health catheter ([id number]) EUPHORA 3.5 Medtronic 1 [id number] 120851 228399 879912 5 [id number] x 15 Balloon ([id number]) LASER ELCA [place] 1 110-004 333222 442580 166947 5 0.9 Rx Healthcare atherectomy (915585) catheter (417372) EXOSEAL 6Fr Cardinal 1 EX600 567606 887106 148789 10 (EX600) Health Signature Audit [place] Stage Time Signature Unsigned Intra-Procedure 05/19/2018 Janelle Snyder 10:22:15 AM RT(R) Signatures Monitor : Janelle Snyder Signature : RT Date : Time : [address] [address]
--- NOTE | ~2018-05-19 | HP ---
PATIENT: Amanda KENDRICK MEDICAL RECORD: [id number] ACCOUNT: [id number] LOCATION:[facility] : 52 ADMISSION DATE: 05/19/18 PCP: DAVID MAC MD HISTORY AND PHYSICAL EXAMINATION ADMITTING DIAGNOSES: 1. Unstable angina. 2. Coronary artery disease. 3. Status post recent percutaneous transluminal coronary angioplasty and stent and vein graft to right coronary artery with concomitant disease, left anterior descending. 4. Hyperlipidemia. 5. Riy-wrebyzd-kuedtktoc diabetes. 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 He is now brought back for PTCA and stent and laser atherectomy of the LAD. PHYSICAL EXAMINATION: GENERAL APPEARANCE: Well-nourished, well-developed, appears stated age. Level of distress, comfortable. PSYCHIATRIC: Mental status, alert, normal affect. Orientation, oriented to time, place and person. EYES: Lids and conjunctiva, noninjected. No discharge, no pallor. ENT: Lips, teeth, gums, normal dentition. Oropharynx, no cyanosis, no pallor. NECK: Carotid arteries, bilateral normal upstroke, no bruits, no thrills. JUGULAR VEINS: No jugular venous pressure or distention. CERVICAL LYMPH NODES: Nontender, nonenlarged. THYROID: Not enlarged. Nontender. No nodules. LUNGS: Respiratory effort, unlabored. CHEST: Normal curvature. No thoracic deformity. No chest wall tenderness. Percussion, resonant. Auscultation, clear. No wheezes, no rales, no rhonchi. CARDIOVASCULAR: Precordial exam, nondisplaced. No heaves or pericardial thrills. Rate and rhythm, regular. Heart sounds, normal S1, normal S2. No S3, no gallop, no rub. Systolic murmur, not heard. Diastolic murmur, not heard. EXTREMITIES: No cyanosis, no edema. Peripheral pulses, full and equal in all extremities, except as noted. No bruits appreciated. ABDOMEN: Soft, nondistended. Normal aorta. No bruit. Nontender. No masses. Liver, nontender, no hepatomegaly. Spleen, nontender, no splenomegaly. MUSCULOSKELETAL: No joint tenderness. No joint swelling. No erythema. NEUROLOGICAL: Normal gait, normal strength, normal tone. SKIN: Warm and dry. REVIEW OF SYSTEMS: The patient reports easy bruising but reports no swollen glands. The patient reports no fever, no night sweats, no significant weight gain, no significant weight loss. No significant exercise tolerance. The patient reports no dry eyes, no irritation, no vision change. Patient reports no difficulty hearing and no ear pain. Patient reports no frequent nose bleeds or nose and sinus problems. Patient reports on arm pain on exertion. No shortness of breath while lying down. No history of heart murmur. Patient reports no cough, no wheezing or coughing up blood. Patient reports no abdominal pain, no vomiting. Normal appetite. No diarrhea and not vomiting HISTORY AND PHYSICAL [id number] Amanda KENDRICK blood. No nausea and no constipation. Patient reports no incontinence. No difficulty urinating. No hematuria. No increased frequency. Patient reports no muscle aches. No weakness, no arthralgias, no back pain. No swelling of the extremities. Patient reports no abnormal mole, no jaundice, no rashes. Reports no loss of consciousness. No weakness and no numbness. No seizures, dizziness, or headaches. The patient reports no depression, no sleep disturbance, feeling safe in a relationship and no alcohol abuse. Patient reports on fatigue. Reports no runny nose or sinus pressure. No itching, no hives, and no frequent sneezing. OVERALL IMPRESSION: Anginal symptomatology with critical disease that is in-stent restenosis of the left anterior descending. We will proceed with transcatheter revascularization of this territory. TRANSINT:[id number] Voice Confirmation ID: [id number] DOCUMENT ID: [id number] PAOLA SANDOVAL MD at 0924 CC: [id number] DICTATION DATE: 05/19/18957 ASSET PROTECTION MANAGER: 05/19/18 1119 DEP CLI 05/19/18 [place] [id number]
[~2018-05-19 06:36] MED LIST changes: -LIPITOR80 MG PO; -PROTONIX20 MG PO; -VALIUM5 MG PO
[2018-05-19 07:04] VITALS: BP 128/65; Ht 157.5 cm; Wt 90.9 kg
[2018-05-19] MEDS ORDERED: PROTONIX20 MG PO (07:11)
[2018-05-19] MEDS ORDERED: LIPITOR80 MG PO (07:12)
[2018-05-19 07:13] LABS: BASOPHILS 0.1 % (0-2); EOSINOPHILS 1.7 % (0-7); HEMATOCRIT 40.1 % (42.0-54.0); HEMOGLOBIN 13.3 g/dL (13.5-17.5); IMMATURE GRANULOCYTES 0.3 % (0-5); LYMPHOCYTES 26.4 % (15-50); MCH 27.8 pg (26.0-34.0); MCHC 33.2 g/dL (31.0-37.0); MCV 83.7 fL (80.0-100.0); MEAN PLATELET VOLUME 10.1 fL (7.4-10.4); MONOCYTES 8.4 % (2-11); NEUTROPHILS 63.1 % (40-80); PLATELET COUNT 276 10x3/uL (130-400); RBC 4.79 10x6/uL (4.20-6.10); WBC 6.9 10x3/uL (4.8-10.8)
[2018-05-19] MEDS ORDERED: VALIUM5 MG PO (07:13)
[2018-05-19 07:23] LABS: ANION GAP 14.3 mmol/L (8-16); CALCIUM 9.1 mg/dL (8.5-10.1); CARBON DIOXIDE 26.9 mmol/L (21.0-32.0); CREATININE - SERUM 1.4 mg/dL (0.6-1.3); POTASSIUM - SERUM 4.2 mmol/L (3.5-5.1)
== END 2018-05-19 14:15 | disposition home or self-care (01) ==
LOC: D.CATH 06:36
PROVIDERS: Internal Medicine Interventional Cardiology
DX: I25.110 Atherosclerotic heart disease of native coronary artery with unstable angina pectoris (principal); T82.855A Stenosis of coronary artery stent, initial encounter; E78.5 Hyperlipidemia, unspecified; E11.9 Type 2 diabetes mellitus without complications; Z01.812 Encounter for preprocedural laboratory examination

== ENCOUNTER 2018-11-05 07:40 | Outpatient (CLI) | payer MEDICARE, OTHER ==
[~2018-11-05] VITALS: Ht 157.5 cm; Wt 93.2 kg
--- NOTE | ~2018-11-05 | HEMODYNAMI ---
PATIENT:Amanda KENDRICK MEDICAL RECORD: [id number] : 52 LOCATION:DGIN ADMISSION DATE: 11/05/18 Generatedon:11/05/20189:21 Patient name: Amanda KENDRICK Patient #: [id number] SSN: : [birth year] Date of study: 11/05/2018 Page: Of Hemodynamic Procedure Report Patient Data Patient Demographics Procedure consent was obtained First Name: Amanda Gender: Male Last Name: AROLDO : 1950 [facility] Initial: B Age: 68 year(s) Patient #: [id number] Race: Additional ID: [id number] Contact details Address: [address] [place] [address] State: [place] City: [facility] Zip code: [address] Past Medical History Allergies Allergen Reaction Date Comments Reported Other allergy 12/27/2015 codeine, penicillins Codeine 08/17/2016 Penicillins 08/17/2016 SUSAN inhibitors 08/17/2016 Other allergy 09/27/2017 CODEINE, PCN Other allergy 05/19/2018 CODEINE, PCN Admission Admission Data Admission Date: 11/05/2018 Admission Time: 7:40 Arrival Date: 11/05/2018 Arrival Time: 10:00 Admit Source: Other Insurance Payor: Medicare Height (in.): 24.41 BSA: 1.38 (m2) Height (cm.): 62 BMI: 533.3 (kg/m2) Weight (lbs.): 451.95 Weight (kg.): 205 Lab Results Lab Result Date: 11/05/2018 Lab Result Time: 8:15 Biochemistry Name Units Result Min Max BUN mg/dl 29 --(----)-* 7 18 Creatinine mg/dl 1.4 --(----)*- 0.6 1.3 CBC Name Units Result Min Max Hematocrit % 41.2 -*(----)-- 42 54 Hemoglobin g/dl 13.2 -*(----)-- 13.5 17.5 Procedure Procedure Types Cath Procedure Diagnostic Procedure [facility] w/Coronaries w/Grafts Sedation Charges Moderate Sedation up to 15 minutes PCI Procedure Coronary Atherectomy Atherectomy w/PTCA Coronary Initial Procedure Description Procedure Date Procedure Date: 11/05/2018 Procedure Start Time: 8:57 Procedure End Time: 9:16 Procedure Staff Name Function Eliazar Krishnan MD Performing Physician Enriqueta Durham RT Monitor Aguilar Reynolds RN Nurse Rajesh Robledo RT Monitor Procedure Data Cath Procedure Fluoroscopy Diagnostic fluoroscopy Total fluoroscopy Time: 7.7 time: 7.7 min min Diagnostic fluoroscopy Total fluoroscopy dose: dose: 679.74 mGy 679.74 mGy Contrast Material Contrast Material Type Amount (ml) Isovue 300 86 Entry Location Entry Primary Successful Side Size Upsize Upsize Entry Closure Succes sful Closure Location (Fr) 1 (Fr) 2 (Fr) Remarks Device Remarks Femoral Right 5 Fr 6 Fr Exoseal artery Short Estimated blood loss: 10 ml Diagnostic catheters Device Type Used For End Catheter Placement MULTIPACK Pigtail 5 Fr Procedure catheter MULTIPACK JL 4.0 5Fr Procedure catheter DIAGNOSTIC AR2 MOD 5 Fr Procedure catheter ([id number]) Procedure Complications No complications Procedure Medications Medication Administration Route Dosage Oxygen etCO2 Nasal cannula 2 l/min Lidocaine 2% added to field 20 Heparin Flush Bag added to field 2 bags (1000units/500ml NS) 0.9% NaCl I.V. 100 ml/hr Versed I.V. 1 mg Fentanyl I.V. 50 mcg Versed I.V. 1 mg Fentanyl I.V. 50 mcg Heparin Bolus I.V. 4000 units Fentanyl I.V. 25 mcg Hemodynamics Rest BSA: 1.38 (m2) HGB: 13.2 (g/dl) O2 Consumption: Estimated: 158.47 (ml/min) O2 Co nsumption indexed: Estimated:114.83 (ml/min/m) Heart Rate: 66 (bpm) Pressure Samples Time Site Value (mmHg) Purpose Heart Use Rate(bpm) 8:58 LV 104/17,26 Snapshot 61 8:58 LV 103/14,26 Snapshot 60 Snapshots Pre Cath Intra NCS Post Cath Vital Signs Time Heart Resp SPO2 etCO2 NIBP Rhythm Pain Sedation Rate (ipm) (%) (mmHg) (mmHg) Status Level (bpm) 8:41:27 62 25 96 0 137/74(99) NSR 0 (11) 10(A) , No pain 8:45:41 60 16 97 0 125/78(94) NSR 0 (11) 10(A) , No pain 8:49:51 63 14 96 0.7 104/64(84) NSR 0 (11) 10(A) , No pain 8:54:01 59 12 98 0 104/63(71) NSR 0 (11) 9(A) , No pain 8:58:15 62 13 97 0.7 101/53(67) NSR 0 (11) 9(A) , No pain 9:02:23 61 13 97 0.7 99/62(79) NSR 0 (11) 9(A) , No pain 9:06:33 61 11 97 0 89/53(84) NSR 0 (11) 9(A) , No pain 9:10:38 60 14 97 1.5 88/61(79) NSR 0 (11) 9(A) , No pain 9:14:44 59 11 97 1.5 102/57(84) NSR 0 (11) 10(A) , No pain Medications Time Medication Route Dose Verified Delivered Reason Notes Effectiveness by by 8:44:40 Oxygen etCO2 2 Eliazar Buffie used for Nasal l/min Eulogio Reynolds RN procedure cannula 8:44:49 Lidocaine 2% added 20ml Eliazar Eliazar for local to vial Eulogio Krishnan MD anesthetic field 8:44:55 Heparin Flush added 2 Eliazar Eliazar used for Bag to bags Eulogio Krishnan MD procedure (1000units/500ml field NS) 8:45:05 0.9% NaCl I.V. 100 Eliazar Buffie Per physician ml/hr Eulogio Reynolds RN 8:50:39 Versed I.V. 1 mg Eliazar Buffie for sedation Eulogio Reynolds RN 8:50:46 Fentanyl I.V. 50 Eliazar Buffie for sedation mcg Eulogio Reynolds RN 8:55:05 Versed I.V. 1 mg Eliazar Buffie for sedation Eulogio Reynolds RN 8:55:08 Fentanyl I.V. 50 Eliazar Buffie for sedation mcg Eulogio Reynolds RN 9:03:25 Heparin Bolus I.V. 4000 Eliazaryusuf Wolfie for verifi ed units Eulogio Reynolds RN anticoagulation with dr krishnan 9:06:24 Fentanyl I.V. 25 Eliazar Sheikh for sedation [facility] [place]ulogio Reynolds RN Procedure Log Time Note 8:30:42 Informed consent obtained and on chart 8:31:49 Aguilar Reynolds RN sent for patient. Start room use. 8:31:50 Time tracking: Regular hours (M-F 7:00 - 5:00) 8:32:58 Plan of Care:Hemodynamics will remain stable., Cardiac rhythm will remain stable., Comfort level will be maintained., Respiratory function will remain adequate., Patient/ family verbilizes understanding of procedure., Procedure tolerated without complication., Recovers from procedure without complications.. 8:34:35 Admit Source: Other 8:34:40 Patient Height : 24.41 inches 8:34:44 Patient Weight : 451.95 lbs 8:34:51 Insurance Payor : Medicare 8:34:58 Arrival Date: 11/05/2018 10:00:00 AM 8:35:55 Patient received from Pre/Post Procedure Room to [facility] 3 Alert and oriented. Tansferred to table in Supine position. 8:35:57 Warm blankets applied, and jacinto hugger turned on for patient comfort. 8:35:57 Correct patient and procedure confirmed by team. 8:35:58 ECG and BP/O2 sat monitors applied to patient. 8:39:47 Vital chart was started 8:39:48 Baseline sample Acquired. 8:39:51 Full Disclosure recording started 8:39:55 H&P Date Dictated: 11/05/2018 Within 30 days and on chart., H&P Addendum completed by physician on day of procedure. (MUST COMPLETE FOR ALL OUTPATIENTS). 8:39:56 Pre-procedure instructions explained to patient. 8:39:57 Pre-op teaching completed and patient verbalized understanding. 8:39:58 Family in waiting room. 8:39:59 Patient NPO since Midnight. 8:40:01 Is the patient allergic to Iodine/contrast media? No. 8:40:02 Was the patient premedicated? No 8:44:40 Oxygen 2 l/min etCO2 Nasal cannula was administered by Aguilar Reynolds RN; used for procedure; 8:44:49 Lidocaine 2% 20ml vial added to field was administered by Eliazar Krishnan MD; for local anesthetic; 8:44:55 Heparin Flush Bag (1000units/500ml NS) 2 bags added to field was administered by Eliazar Krishnan MD; used for procedure; 8:45:05 0.9% NaCl 100 ml/hr I.V. was administered by Aguilar Reynolds RN; Per physician; 8:45:14 Baseline sample Acquired. 8:45:18 Rhythm: sinus rhythm 8:45:23 Is patient on blood thinner?Yes 8:45:25 ACC The patient was administered the following blood thiners within the last 24 hours: ACCPlavix 8:45:27 Patient diabetic? Yes. 8:45:28 If diabetic: On Metformin? Yes 8:45:30 If on Metformin: Last Dose? 11/03/2018 8:45:34 Previous problem with sedation/anesthesia? No ? 8:45:35 Snore? Yes 8:45:36 Sleep apnea? Yes 8:45:37 Deviated septum? No 8:45:37 Opens mouth fully? Yes 8:45:38 Sticks out tongue? Yes 8:45:42 Airway obstruction? Yes asthma 8:45:46 Dentures? Yes in tight 8:45:49 Pre procedure: right dorsailis pedis pulse 3+ Increased pulse; moderate pressure to obliterate 8:45:54 IV patent on arrival in left forearm with 0.9% NaCl at [facility]. 8:45:57 Lab results completed and on chart. 8:46:39 Lab Result : Hemoglobin 13.2 g/dl 8:46:39 Lab Result : Hematocrit 41.2 % 8:46:43 Right groin area was prepped with chlora-prep and draped in sterile fashion 8:46:44 Alarms reviewed by R. N. 8:46:44 Sharps counted by scrub and verified by R.N. 8:46:46 Use device set Femoral Dx 8:46:47 ACIST Syringe (67310) opened to sterile field. 8:46:47 Bag Decanter () opened to sterile field. 8:46:48 Medline Cath Pack ([id number]) opened to sterile field. 8:46:49 ACIST Hand Control (77850) opened to sterile field. 8:46:50 ACIST Manifold (06463) opened to sterile field. 8:46:51 Tegaderm 4 x 4 (1626W) opened to sterile field. 8:46:51 DIAGNOSTIC Multipack 5Fr catheter set (LP0287) opened to sterile field. 8:46:52 SHEATH 5FR [place] (JJI438) opened to sterile field. 8:46:53 DIAGNOSTIC WIRE .035 260cm J wire (509360) opened to sterile field. 8:47:00 Physician arrived 8:47:01 --------ALL STOP TIME OUT------ 8:47:01 Final Timeout: patient, procedure, and site verified with staff and physician. All members of the team are in agreement. 8:47:03 Right groin site verified by team. 8:47:11 Maximum allowable Isovue 300 dose 300ml. Physician notified. (300ml for normal creatinines. For patients with creatinine of 1.7 or higher multiply weight(kg) x 5 divided by creatinine.) 8:47:15 Fire Safety Assessment: A--An alcohol-based skin anteseptic being used preoperatively., C--Open oxygen or nitrous oxide is being used., D--An ESU, laser, or fiber-optic light is being used. 8:47:18 Physical assessment completed. ASA score P 2 - A patient with mild systemic disease as per Enriqueta Durham RT(R). 8:47:22 Physical assessment completed. ASA score P 2 - A patient with mild systemic disease as per Eliazar Krishnan MD. 8:47:25 Sedation plan: IV Moderate Sedation Medication:Versed, Fentanyl 8:49:44 Zero performed for pressure channel P1 8:49:49 Zero performed for pressure channel P1 8:49:54 Zero performed for pressure channel P1 8:50:39 Versed 1 mg I.V. was administered by Aguilar Reynolds RN; for sedation; 8:50:46 Fentanyl 50 mcg I.V. was administered by Aguilar Reynolds RN; for sedation; 8:55:05 Versed 1 mg I.V. was administered by Aguilar Reynolds RN; for sedation; 8:55:08 Fentanyl 50 mcg I.V. was administered by Aguilar Reynolds RN; for sedation; 8:57:22 Procedure started. 8:57:25 Local anesthetic to right femoral artery with Lidocaine 2% by Eliazar Krishnan MD.INITIAL ACCESS ONLY 8:57:34 A 5 Fr sheath was inserted into the Right Femoral artery 8:57:46 A MULTIPACK Pigtail 5 Fr catheter was advanced over the wire and used for Procedure. 8:58:42 LV gram done using MARSHALL 8:58:45 Injector settings: Ml/sec: 10, Volume: 20, 8:58:47 LV hemodynamics recorded. 8:58:51 EF : 60 % 8:59:27 Lab Result : BUN 29 mg/dl 8:59:27 Lab Result : Creatinine 1.4 mg/dl 9:00:27 Catheter exchanged over wire. 9:00:30 A MULTIPACK JL 4.0 5Fr catheter was advanced over the wire and used for Procedure. 9:00:32 Catheter exchanged over wire. 9:00:42 A DIAGNOSTIC AR2 MOD 5 Fr catheter ([id number]) was advanced over the wire and used for Procedure. 9:01:10 SHEATH 6FR [place] (IKX732) opened to sterile field. 9:01:11 INFLATOR Merit BasixCompak (KU7670) opened to sterile field. 9::57 CHOICE PT Extra Support 182cm wire ([id number]) opened to sterile field. 9:02:05 GUIDE 6FR XBLAD 3.5 catheter ([id number]) opened to sterile field. 9:02:09 RCA angiography performed. 9:02:15 SVG to RCA angiography performed. 9::51 Catheter removed. 9::56 Sheath upsized to a 6 Fr Short. 9:03:24 6 Fr xblad 3.5 guide catheter was inserted over the wire 9:03:25 Heparin Bolus 4000 units I.V. was administered by Aguilar Reynolds RN; for anticoagulation; verified with dr krishnan 9::56 Procedure type changed to Cath procedure, Diagnostic procedure, LHC, LHC w/Coronaries w/Grafts, Sedation Charges, Moderate Sedation up to 15 minutes, PCI procedure, Coronary Atherectomy, Atherectomy w/PTCA Coronary Initial 9:04:03 choice pt es wire advanced. 9:04:25 Wire advanced across lesion. 9:05:01 LASER ELCA 0.9 Rx atherectomy catheter (740621) opened to sterile field. 9:05:08 Inflate balloon Inflation number: 1 A EUPHORA 2.0 x 20 Balloon ([id number]) was prepped and advanced across the Mid LAD, then inflated to 17 SAMSON for 0:10 (min:sec). 9:05:39 Multiple inflations made to 17 ATMS 9:06:24 Fentanyl 25 mcg I.V. was administered by Aguilar Reynolds RN; for sedation; 9:07:06 Balloon removed over the wire. 9:08:08 ELCA laser 0.9 RX advanced over wire. 9:08:17 Laser pass to mLAD with Fluence of 80 and Rate of 40. 9:10:22 Laser catheter removed. 9:11:43 Inflate balloon Inflation number: 2 A EUPHORA 2.5 x 20 Balloon ([id number]) was prepped and advanced across the Mid LAD, then inflated to 23 SAMSON for 0:10 (min:sec). 9:11:56 Inflation number: 3 The EUPHORA 2.5 x 20 Balloon ([id number]) was reinflated across the Mid LAD, to 13 SAMSON for 0:10 (min:sec). 9:12:24 Inflation number: 4 The EUPHORA 2.5 x 20 Balloon ([id number]) was reinflated across the Mid LAD, to 23 SAMSON for 0:10 (min:sec). 9:12:33 Inflation number: 5 The EUPHORA 2.5 x 20 Balloon ([id number]) was reinflated across the Mid LAD, to 21 SAMSON for 0:10 (min:sec). 9:12:51 Balloon removed over the wire. 9:12:58 Wire removed. 9:12:59 Guide catheter removed. 9:13:04 EXOSEAL 6Fr (EX600) opened to sterile field. 9:13:16 Sheath removed intact; hemostasis achieved with Exoseal to the Right Femoral artery. 9:13:17 Procedure ended.(Physican Out) 9:14:34 Fluoroscopy time 07.70 minutes. 9:14:47 Flurop Dose total: 679.74 9:14:47 Fluoroscopy dose: 679.74 mGy 9:15:01 Contrast amount:Isovue 300 86ml. 9:15:02 Sharps counted by scrub and verified by R.N. 9:15:03 Insertion/operative site no bleeding no hematoma. 9:15:05 Post-op/insertion site Right Femoral artery dressed using a 4 x 4 and Tegaderm. 9:15:09 Post right femoral artery:stable, soft, clean and dry 9:15:10 Post Procedure Pulses reassessed and unchanged 9:15:13 Post-procedure physical assessment completed. ASA score P 2 - A patient with mild systemic disease as per Eliazar Krishnan MD. 9:15:15 Post procedure rhythm: unchanged. 9:15:18 Estimated blood loss: 10 ml 9:15:19 Post procedure instruction explained to patient.Patient verbalizes understanding. 9:15:19 Patient needs reinforcement of post procedure teaching. 9:16:26 Procedure and supply charges have been captured, reviewed, submitted and are correct. 9:16:28 Procedure Complication : No complications 9:16:29 Vital chart was stopped 9:16:30 See physician's report for complete and final results. 9:16:31 Report given to Pre/Post Procedure Room. 9:16:34 Patient transfered to Pre/Post Procedure Room with Stretcher. 9:16:35 Procedure ended. 9:16:35 Full Disclosure recording stopped 9:16:48 Laser total pulses delivered: 2400 9:16:53 Laser total treatment time: 1 minutes 0 seconds 9:20:17 End room use (Document Last) Intervention Summary Intervention Notes Time ActionType Lesion and Equipment Action# Pressure Duration Attributes Used 9:05:08 Inflate Mid LAD EUPHORA 1 17 00:10 balloon 2.0 x 20 Balloon ([id number]) 9:11:43 Inflate Mid LAD EUPHORA 2 23 00:10 balloon 2.5 x 20 Balloon ([id number]) 9:11:56 Reinflate Mid LAD EUPHORA 3 13 00:10 balloon 2.5 x 20 Balloon ([id number]) 9:12:24 Reinflate Mid LAD EUPHORA 4 23 00:10 balloon 2.5 x 20 Balloon ([id number]) 9:12:33 Reinflate Mid LAD EUPHORA 5 21 00:10 balloon 2.5 x 20 Balloon ([id number]) Device Usage Item Name Manufacture Quantity Catalog Number Hospital Part Current Minim al Lot# / Charge Number Stock Stock Serial# Code ACIST Acist 1 69520 [id number] 680263 494518 20 Syringe Operation Supply Drop (23320) Systems Inc Bag Microtek 1 225040 66505 844278 5 Decanter Medical Inc. () Medline Medline 1 [id number] 806531 83441 152233 5 Cath Pack ([id number]) ACIST Hand Acist 1 45140 287150 594684 427890 5 Control Medical (79688) Systems Inc ACIST Acist 1 02183 154465 698432 851490 5 Manifold Medical (97591) Systems Inc Tegaderm 4 3M 1 1626W 776853 120182 374347 5 x 4 (1626W) DIAGNOSTIC Cardinal 1 NE0518 556963 72453 668792 30 Multipack Health 5Fr catheter set (KT5149) SHEATH 5FR Terumo 1 SGQ371 444581 277501 128213 5 [place] (DTL641) DIAGNOSTIC St Shreyas 1 459592 519128 918201 773807 30 WIRE .035 260cm J wire (859899) MULTIPACK Cardinal 1 875497 5 Pigtail 5 Health Fr catheter MULTIPACK Cardinal 1 411715 5 JL 4.0 5Fr Health catheter DIAGNOSTIC Cardinal 1 [id number] 343484 457527 215885 20 AR2 MOD 5 Health Fr catheter (277975U) SHEATH 6FR Terumo 1 TBW840 851713 111734 599789 40 [place] (BDE828) INFLATOR Merit 1 MI4452 308907 475352 075297 15 [facility] Medical BasixCompak (FT0785) CHOICE PT [place] 1 [id number] 141147 500199 426247 5 Extra Scientific Support 182cm wire ([id number]) GUIDE 6FR Cardinal 1 45366770 994479 256878 978964 10 XBLAD 3.5 Health catheter (03406681) LASER ELCA Viridiana 1 110-004 229094 407337 746797 5 0.9 Rx Yabidu atherectomy (306276) catheter (872995) EUPHORA 2.0 Medtronic 1 [id number] 067642 584627 469070 5 [id number] x 20 Balloon ([id number]) EUPHORA 2.5 Medtronic 1 HUA3626Y 018735 503344 318571 5 [id number] x 20 Balloon ([id number]) EXOSEAL 6Fr Cardinal 1 EX600 784899 988794 623510 10 (EX600) Health Signature Audit Dorothy Stage Time Signature Unsigned Intra-Procedure 11/05/2018 Rajesh Robledo 9:20:48 AM RT(R) Signatures Monitor : Enriqueta Durham RT Signature : Date : Time : Monitor : Rajesh Robledo RT Signature : Date : Time : [place] [id number] [place] [address]
[~2018-11-05 07:40] MED LIST changes: +LIPITOR80 MG PO; +PROTONIX20 MG PO; +VALIUM5 MG PO
[2018-11-05 08:19] VITALS: BP 122/77; Ht 157.5 cm; Wt 93.2 kg
[2018-11-05 08:33] LABS: BASOPHILS 0.3 % (0-2); EOSINOPHILS 1.5 % (0-7); HEMATOCRIT 41.2 % (42.0-54.0); HEMOGLOBIN 13.2 g/dL (13.5-17.5); IMMATURE GRANULOCYTES 0.2 % (0-5); MCV 84.4 fL (80.0-100.0); MEAN PLATELET VOLUME 10.1 fL (7.4-10.4); MONOCYTES 10.1 % (2-11); NEUTROPHILS 57.9 % (40-80); PLATELET COUNT 298 10x3/uL (130-400); RBC 4.88 10x6/uL (4.20-6.10); RDW 14.1 % (11.5-14.5); WBC 5.9 10x3/uL (4.8-10.8)
[2018-11-05 08:48] LABS: ANION GAP 12.7 mmol/L (8-16); CREATININE - SERUM 1.4 mg/dL (0.6-1.3); POTASSIUM - SERUM 4.7 mmol/L (3.5-5.1)
--- NOTE | 2018-11-05 09:30 | NUR ---
RECIEVED TO ROOM VIA STRETCHER FROM PSYCHOLOGIST SOCIAL WITH 6 FR EXOSEAL R/GROIN CDI NO BLEEDING OR HEMATOMA NOTED. PATIENT DENIED CHEST PAIN ON ARRIVAL HR 63 BP 129/55.
--- NOTE | 2018-11-05 09:45 | NUR ---
6 FR EXOSEAL R/GROIN IS CDI WITH NO BLEEDING OR HEMATOMA. INSTRUCTED PATIENT TO KEEP HEAD FLAT ON PILLOW WITH RLE STRAIGHT
--- NOTE | 2018-11-05 10:09 | NUR ---
PATINET VOIDS 400 CC CLEAR YELLOW URINE TO COLLECTION R/GROIN IS CDI
--- NOTE | 2018-11-05 10:20 | NUR ---
6 FR EXOSEAL R/GROIN REMAINS CDI WITH NO BLEEDING. PATIENT TOLERATING SANDWICH AND SODA WITH NAUSEA DENIED. FAMILY IS PRESENT AT BEDSIDE
--- NOTE | 2018-11-05 10:45 | NUR ---
PATIENT CONTINUES TO REST WITH NO DISTRESS NOTED. 6 FR EXOSEAL R/GROIN IS CDI FAMILY PRESENT AT BEDSIDE
--- NOTE | 2018-11-05 11:14 | NUR ---
PATIENT VISITING WITH FAMILY PRESENT IN ROOM 6 FR EXOSEAL R/GROIN IS CDI AND CHEST PAIN IS DENIED
--- NOTE | 2018-11-05 11:55 | NUR ---
RESTING QUIETLY WITH NO DISTRESS RESPIRATIONS EVEN AND UNLABORED
--- NOTE | 2018-11-05 12:38 | NUR ---
REPOSITIONED TO SITTING WITH HOB UP 30 FOR COMFORT. 6 FR EXOSEAL R/GROIN IS CDI AND PATIENT DENIED CHEST PAIN
--- NOTE | 2018-11-05 12:57 | NUR ---
VERBAL AND WRITTEN DISCHARGE GONE OVER WITH PATIENT AND FAMILY. PIV REMOVED WITH DRESSING APPLIED. PATIENT UP TO GET DRESSED FOR DISCHARGE HOME NO DISTRESS NOTED
--- NOTE | 2018-11-05 13:19 | NUR ---
PATIENT LEFT VIA WC TO PARKING FOR PRIVATE TRANSPORT HOME NO DISTRESS
--- NOTE | 2018-11-07 15:03 | OP ---
PATIENT NAME: Amanda KENDRICK MEDICAL RECORD: [id number] :52 LOCATION:D.CAT ADMISSION DATE: SURGEON: PAOLA SANDOVAL MD DATE OF OPERATION: 11/05/2018 PROCEDURES: 1. Laser atherectomy LAD. 2. PTCA stent LAD. 3. Left heart catheterization. 4. Selective coronary angiography. 5. Left ventriculogram. 6. Vein graft angiography. INDICATION: Angina and coronary artery disease. PROCEDURE IN DETAIL: After informed consent was obtained and after a detailed description of risks, benefits as well as alternative therapies, the patient elected to proceed with angiogram and angioplasty. The right femoral area was prepped and draped in normal sterile fashion. Right femoral artery was cannulated via modified Seldinger technique with placement of 6-[place] sheath. All catheters exchanged through this sheath. FINDINGS: The left ventriculogram was performed in a standard 30-degree MARSHALL view, reveals good cardiac wall motion throughout all segments. Overall ejection fraction estimated 60%. SELECTIVE CORONARY ANGIOGRAPHY: 1. Left main is with no significant angiographic disease. 2. Left anterior descending has previously placed stents. There is 99% in-stent restenosis throughout the mid vessel. 3. The left circumflex is closed. 4. The right coronary artery is open. This leads to PLV. This is as well open. The PDA is occluded. 5. Vein graft to the right PDA is widely patent, previously placed stents are patent, no significant disease elsewise. LASER ATHERECTOMY PTCA OF THE LAD: A 0.9 laser catheter was used for multiple passes at 80/40 ballooning with a 2.0 and 2.5 balloon. Result was 0% residual stenosis. OVERALL IMPRESSION: Successful PTCA stent of the LAD with laser atherectomy going from 99% initial stenosis to 0% residual. TRANSINT:[id number] Voice Confirmation ID: [id number] DOCUMENT ID: [id number] PAOLA SANDOVAL MD at 1503 CC: [id number] DICTATION DATE: 11/05/18 0917 MANAGER PAID: 11/05/18 [id number] DEP CLI 11/05/18 [place] [address]
== END 2018-11-05 13:22 ==
LOC: D.CATH 07:40
PROVIDERS: ATTEND Internal Medicine Interventional Cardiology
DX: I25.119 Atherosclerotic heart disease of native coronary artery with unspecified angina pectoris (principal); T82.855A Stenosis of coronary artery stent, initial encounter; Z01.812 Encounter for preprocedural laboratory examination

== ENCOUNTER 2019-12-17 06:15 | Outpatient (CLI) | payer MEDICARE, OTHER ==
[~2019-12-17] VITALS: Ht 156.2 cm; Wt 97.1 kg
--- NOTE | ~2019-12-17 | HEMODYNAMI ---
PATIENT:Amanda KENDRICK MEDICAL RECORD: [id number] : 52 LOCATION:DGIN ADMISSION DATE: 12/17/19 Generatedon:12/17/20198:29 Patient name: Amanda KENDRICK Patient #: [id number] SSN: [id number] : 1950 Date of study: 12/17/2019 Page: Of Hemodynamic Procedure Report Patient Data Patient Demographics Procedure consent was obtained First Name: Amanda Gender: Male Last Name: AROLDO : 1950 [facility] Initial: B Age: 69 year(s) Patient #: [id number] Race: SSN: [id number] Additional ID: [id number] Contact details Address: [address] [place] [address] State: [place] City[facility] Zip code: [address] Past Medical History Allergies Allergen Reaction Date Comments Reported Other allergy 12/27/2015 codeine, penicillins Codeine 08/17/2016 Penicillins 08/17/2016 SUSAN inhibitors 08/17/2016 Other allergy 09/27/2017 CODEINE, PCN Other allergy 05/19/2018 CODEINE, PCN Other allergy 12/17/2019 CODEINE, PCN Admission Admission Data Admission Date: 12/17/2019 Admission Time: 6:15 Height (in.): 62 BSA: 1.96 (m2) Height (cm.): 157.48 BMI: 38.96 (kg/m2) Weight (lbs.): 213 Weight (kg.): 96.62 Lab Results Lab Result Date: 12/17/2019 Lab Result Time: 0:00 Biochemistry Name Units Result Min Max BUN mg/dl 28 --(----)-* 7 18 Creatinine mg/dl 1.5 --(----)-* 0.6 1.3 eGFR ml/min 49 *-(----)-- 90 120 NONAFRICAN CBC Name Units Result Min Max Hematocrit % 37.9 *-(----)-- 42 54 Hemoglobin g/dl 11.6 *-(----)-- 13.5 17.5 Procedure Procedure Types Cath Procedure Diagnostic Procedure LHC LHC w/Coronaries w/Grafts Sedation Charges Moderate Sedation up to 15 minutes Procedure Description Procedure Date Procedure Date: 12/17/2019 Procedure Start Time: 8:07 Procedure End Time: 8:26 Procedure Staff Name Function Todd Brooks MD Performing Physician Tisha Farley RN Nurse Janelle Snyder RT Guide Domestic Tour My Langley RT Scrub Мария Alex RT Monitor Procedure Data Cath Procedure Fluoroscopy Diagnostic fluoroscopy Total fluoroscopy Time: 5.1 time: 5.1 min min Diagnostic fluoroscopy Total fluoroscopy dose: dose: 1007 mGy 1007 mGy Contrast Material Contrast Material Type Amount (ml) Isovue 300 88 Entry Location Entry Primary Successful Side Size Upsize Upsize Entry Closure Succes sful Closure Location (Fr) 1 (Fr) 2 (Fr) Remarks Device Remarks Femoral Right 5 Fr Exoseal artery Estimated blood loss: 10 ml Diagnostic catheters Device Type Used For End Catheter Placement MULTIPACK JL 4.0 5Fr Procedure catheter DIAGNOSTIC AR1 MOD 5Fr Procedure catheter ([id number]) MULTIPACK 3DRC 5Fr Procedure catheter MULTIPACK Pigtail 5 Fr Ventriculography catheter Procedure Complications No complications Procedure Medications Medication Administration Route Dosage 0.9% NaCl I.V. 100 ml/hr Oxygen etCO2 Nasal cannula 2 l/min Lidocaine 2% added to field 20 Heparin Flush Bag added to field 2 bags (1000units/500ml NS) Versed I.V. 2 mg Fentanyl I.V. 50 mcg Hemodynamics Rest BSA: 1.96 (m2) HGB: 11.6 (g/dl) O2 Consumption: Estimated: 215.86 (ml/min) O2 Co nsumption indexed: Estimated:110.13 (ml/min/m) Heart Rate: 54 (bpm) Pressure Samples Time Site Value (mmHg) Purpose Heart Use Rate(bpm) 8:22 LV 157/36,58 Snapshot 61 8:23 AO 165/92(121) Pullback 53 8:23 LV 236/-11,172 Pullback 53 Gradients Valve Time Site 1 Site 2 Mean SEP/DFP Peak To Heart Use (mmHg) (sec/min) Peak Rate (mmHg) (bpm) Aortic 8:23 LV AO 33 44 71 53 236/-11,172 165/92(121) Calculations Valve P-P Mean Valve Index Valve Source Name Gradient Area Flow (cm2) Aortic 71 33 71 33 Snapshots Pre Cath Intra NCS Post Cath Vital Signs Time Heart Resp SPO2 etCO2 NIBP (mmHg) Rhythm Pain Sedation Rate (ipm) (%) (mmHg) Status Level (bpm) 7:55:41 56 26 97 38 146/89(103) SB 0 (11) 10(A) , No pain 8:00:07 58 17 98 13.5 156/92(125) SB 0 (11) 10(A) , No pain 8:04:32 54 13 97 19.6 142/83(112) SB 0 (11) 10(A) , No pain 8:08:56 51 12 97 33.2 133/83(103) SB 0 (11) 10(A) , No pain 8:13:20 52 13 96 20.3 145/82(108) SB 0 (11) 9(A) , No pain 8:17:46 51 12 97 25.6 146/86(99) SB 0 (11) 9(A) , No pain 8:22:19 53 14 98 26.4 155/75(88) SB 0 (11) 10(A) , No pain 8:26:45 52 15 97 37.7 137/83(102) SB 0 (11) 10(A) , No pain Medications Time Medication Route Dose Verified Delivered Reason Notes Effe ctiveness by by 7:54:38 0.9% NaCl I.V. 100 Todd Tisha used for ml/hr Todd Farley broom stitcher 7:54:46 Oxygen etCO2 2 Todd Tisah used for Nasal l/min Todd Farley procedure cannula RN 7:54:53 Lidocaine 2% added 20ml Todd Todd for local to vial Todd Brooks MD anesthetic field 7:54:57 Heparin Flush added 2 Todd Todd used for Bag to bags Todd Brooks MD procedure (1000units/500ml field NS) 8:06:39 Versed I.V. 2 mg Todd Tisha for Todd Farley sedation RN 8:06:45 Fentanyl I.V. 50 Todd Tisha for mcg Todd Farley sedation breaker layer Log Time Note 7:32:32 Informed consent obtained and on chart 7:34:26 Procedure Status Elective Heart Cath (OP). 7:34:27 Time tracking: Regular hours (M-F 7:00 - 5:00) 7:34:31 Plan of Care:Hemodynamics will remain stable., Cardiac rhythm will remain stable., Comfort level will be maintained., Respiratory function will remain adequate., Patient/ family verbilizes understanding of procedure., Procedure tolerated without complication., Recovers from procedure without complications.. 7:35:36 Tisha Farley RN sent for patient. Start room use. 7:38:21 Patient allergic to Other allergyCODEINE, PCN 7:44:13 Lab Result : BUN 28 mg/dl 7:44:13 Lab Result : Creatinine 1.5 mg/dl 7:44:13 Lab Result : eGFR NONAFRICAN 49 ml/min 7:44:13 Lab Result : Hemoglobin 11.6 g/dl 7:44:13 Lab Result : Hematocrit 37.9 % 7:48:51 Patient received from Pre/Post Procedure Room to CCL 1 Alert and oriented. Tansferred to table in Supine position. 7:48:52 Warm blankets applied, and jacinto hugger turned on for patient comfort. 7:48:53 Correct patient and procedure confirmed by team. 7:48:53 ECG and BP/O2 sat monitors applied to patient. 7:49:02 H&P Date Dictated: 12/16/2019 Within 30 days and on chart., H&P Addendum completed by physician on day of procedure. (MUST COMPLETE FOR ALL OUTPATIENTS). 7:49:03 Pre-procedure instructions explained to patient. 7:49:04 Pre-op teaching completed and patient verbalized understanding. 7:49:06 Family AVAILABLE WITH PHONE CALL 7:49:19 Patient NPO since Midnight. 7:49:21 Is the patient allergic to Iodine/contrast media? No. 7:50:04 ACC Patient presents with Stable Angina CCS Anginal Class 3--Marked limitation of physical activity, angina occurs with ordinary activity.. 7:50:41 Patient Height : 62 inches 7:50:45 Patient Weight : 213 lbs 7:54:22 Vital chart was started 7:54:23 Baseline sample Acquired. 7:54:30 Rhythm: sinus bradycardia 7:54:33 Full Disclosure recording started 7:54:38 0.9% NaCl 100 ml/hr I.V. was administered by Tisha Farley RN; used for procedure; Verbal order read back and verified. 7:54:41 Is patient on blood thinner?Yes 7:54:46 Oxygen 2 l/min etCO2 Nasal cannula was administered by Tisha Farley RN; used for procedure; Verbal order read back and verified. 7:54:46 ACC The patient was administered the following blood thiners within the last 24 hours: ACCPlavix 7:54:49 Patient diabetic? Yes. 7:54:51 If diabetic: On Metformin? No 7:54:53 Lidocaine 2% 20ml vial added to field was administered by Todd Brooks MD; for local anesthetic; Verbal order read back and verified. 7:54:54 Previous problem with sedation/anesthesia? No ? 7:54:56 Snore? Yes 7:54:57 Heparin Flush Bag (1000units/500ml NS) 2 bags added to field was administered by Todd Brooks MD; used for procedure; Verbal order read back and verified. 7:54:57 Sleep apnea? Yes 7:54:58 Deviated septum? No 7:55:14 Opens mouth fully? Yes 7:55:16 Sticks out tongue? Yes 7:55:18 Airway obstruction? No ? 7:55:20 Dentures? No ? 7:55:27 Pre procedure: right dorsailis pedis pulse 1+ Palpable, but thready & weak; easily obliterated 7:55:32 Patient pain scale 0/10 ?. 7:55:36 IV patent on arrival in left hand with 0.9% NaCl at O. 7:55:39 Lab results completed and on chart. 7:59:08 Right groin area was prepped with chlora-prep and draped in sterile fashion 7:59:10 Alarms reviewed by R. N. 7:59:13 Sharps counted by scrub and verified by R.N. 8:05:24 Physician arrived 8:05:25 --------ALL STOP TIME OUT------ 8:05:26 Final Timeout: patient, procedure, and site verified with staff and physician. All members of the team are in agreement. 8:05:31 Right groin site verified by team. 8:05:35 Fire Safety Assessment: A--An alcohol-based skin anteseptic being used preoperatively., C--Open oxygen or nitrous oxide is being used., D--An ESU, laser, or fiber-optic light is being used. 8:05:42 Physical assessment completed. ASA score P 3 - A patient with severe systemic disease as per Todd Brooks MD. 8:05:52 3a) 45-59 Moderately reduced kidney function. 8:06:18 Maximum allowable contrast dose (3.7 X eGFR X 0.75)136 ml. 8:06:24 Sedation plan: IV Moderate Sedation Medication:Versed, Fentanyl 8:06:39 Versed 2 mg I.V. was administered by Tisha Farley RN; for sedation; Verbal order read back and verified. 8:06:45 Fentanyl 50 mcg I.V. was administered by Tisha Farley RN; for sedation; Verbal order read back and verified. 8:07:39 Procedure started. 8:07:48 Local anesthetic to right femoral artery with Lidocaine 2% by Todd Brooks MD.INITIAL ACCESS ONLY 8:08:46 A 5 Fr sheath was inserted into the Right Femoral artery 8:11:44 Use device set Femoral Dx 8:11:45 ACIST Syringe (72004) opened to sterile field. 8:11:46 Bag Decanter (2002S) opened to sterile field. 8:11:47 Medline Cath Pack ([id number]) opened to sterile field. 8:11:48 ACIST Hand Control (13409) opened to sterile field. 8:11:49 ACIST Manifold (83500) opened to sterile field. 8:11:50 DIAGNOSTIC Multipack 5Fr catheter set (OB4150) opened to sterile field. 8:11:53 SHEATH 5FR Omak ([id number]) opened to sterile field. 8:11:54 EMERALD Guide Wire (286-153) opened to sterile field. 8:11:57 Tegaderm 4 x 4 (1626W) opened to sterile field. 8:12:20 A MULTIPACK JL 4.0 5Fr catheter was advanced over the wire and used for Procedure. 8:12:27 LCA angiography performed. 8:13:10 Catheter removed. 8:13:55 A DIAGNOSTIC AR1 MOD 5Fr catheter ([id number]) was advanced over the wire and used for Procedure. 8:14:43 SVG angiography performed. 8:14:51 SVG to RCA angiography performed. 8:19:33 Catheter removed. 8:19:43 A MULTIPACK 3DRC 5Fr catheter was advanced over the wire and used for Procedure. 8:19:59 RCA angiography performed. 8:22:04 Catheter removed. 8:22:16 A MULTIPACK Pigtail 5 Fr catheter was advanced over the wire and used for Ventriculography. 8:22:26 LV gram done using MARSHALL 8:22:56 EF : 50 % 8:23:13 EXOSEAL 5Fr (EX500) opened to sterile field. 8:23:20 Catheter removed. 8:23:36 Sheath removed intact; hemostasis achieved with Exoseal to the Right Femoral artery. 8:23:51 Procedure ended.(Physican Out) 8:23:54 Fluoroscopy time 05.10 minutes. 8:23:59 Flurop Dose total: 1007 8:23:59 Fluoroscopy dose: 1007 mGy 8:24:14 Dose Area Product 72615 mGy/cm. 8:24:19 Contrast amount:Isovue 300 88ml. 8:24:22 Maximum allowable dose exceeded? No. 8:24:23 Sharps counted by scrub and verified by R.N. 8:24:32 Post-op/insertion site Right Femoral artery dressed using a 4 x 4 and Tegaderm. 8:24:44 Post right femoral artery:stable 8:24:46 Post Procedure Pulses reassessed and unchanged 8:24:50 Post-procedure physical assessment completed. ASA score P 3 - A patient with severe systemic disease as per Todd Brooks MD. 8:24:54 Post procedure rhythm: unchanged. 8:24:57 Estimated blood loss: 10 ml 8:24:59 Post procedure instruction explained to patient.Patient verbalizes understanding. 8:25:25 Procedure type changed to Cath procedure, Diagnostic procedure, LHC, LHC w/Coronaries w/Grafts, Sedation Charges, Moderate Sedation up to 15 minutes 8:25:53 Procedure and supply charges have been captured, reviewed, submitted and are correct. 8:26:03 Procedure Complication : No complications 8:26:08 Vital chart was stopped 8:26:15 [facility] Findings: mild to moderate CAD (<70%) 8:26:17 Operative report dictated upon procedure completion. 8:26:18 See physician's report for complete and final results. 8:26:20 Report given to Pre/Post Procedure Room. 8:26:24 Patient transfered to Pre/Post Procedure Room with Stretcher. 8:26:27 Procedure ended. 8:26:27 Full Disclosure recording stopped 8:26:30 End room use (Document Last) 8:28:04 End room use (Document Last) 8:28:34 End room use (Document Last) Device Usage Item Name Manufacture Quantity Catalog Hospital Part Current Minimal L ot# / Number Charge Number Stock Stock Serial# Code ACIST Acist 1 61805 480611 875735 882107 20 Syringe Medical (46485) Systems Inc Bag Microtek 1 544604 07957 564298 5 Decanter Medical Inc. () Medline Medline 1 [id number] 132295 34001 590784 5 Cath Pack ([id number]) ACIST Hand Acist 1 06885 729935 059148 528581 5 Control Medical (41469) Systems Inc ACIST Acist 1 88434 750706 760226 402672 5 Manifold Medical (27126) Systems Inc DIAGNOSTIC Cardinal 1 FW7747 606819 03579 593476 30 Multipack Health 5Fr catheter set (IK5135) SHEATH 5FR Terumo 1 NEP660 558072 845291 173134 5 Omak (YSP255) EMERALD Cardinal 1 502-455 339053 287616 316692 5 Guide Wire Health (502-455) Tegaderm 4 3M 1 1626W 245659 349068 148719 5 x 4 (1626W) MULTIPACK Cardinal 1 564812 5 JL 4.0 5Fr Health catheter DIAGNOSTIC Cardinal 1 [id number] 263103 202024 524849 15 AR1 MOD 5Fr Health catheter (090997V) MULTIPACK Cardinal 1 973558 5 3DRC 5Fr Health catheter MULTIPACK Cardinal 1 040141 5 Pigtail 5 Health Fr catheter EXOSEAL 5Fr Cardinal 1 EX500 113716 600240 648560 10 (EX500) Health Signature Audit [place]vere Stage Time Signature Unsigned Intra-Procedure 12/17/2019 Мария Alex 8:28:04 AM RT(R) Intra-Procedure 12/17/2019 Tisha Farley 8:28:35 AM RN Intra-Procedure 12/17/2019 Todd Brooks MD 8:29:00 AM [facility] [address] [facility] [place] [address]
[2019-12-17] MEDS ORDERED: NITROSTAT0.4 MG SL (06:40)
[2019-12-17 06:57] VITALS: BP 145/76; Ht 156.2 cm; Wt 97.1 kg
[2019-12-17 06:57] LABS: BASOPHILS 0.3 % (0-2); EOSINOPHILS 2.2 % (0-7); HEMATOCRIT 37.9 % (42.0-54.0); HEMOGLOBIN 11.6 g/dL (13.5-17.5); IMMATURE GRANULOCYTES 0.2 % (0-5); LYMPHOCYTES 23.5 % (15-50); MCH 25.3 pg (26.0-34.0); MCHC 30.6 g/dL (31.0-37.0); MCV 82.6 fL (80.0-100.0); MEAN PLATELET VOLUME 9.4 fL (7.4-10.4); MONOCYTES 10.4 % (2-11); NEUTROPHILS 63.4 % (40-80); PLATELET COUNT 322 10x3/uL (130-400); RBC 4.59 10x6/uL (4.20-6.10); RDW 15.7 % (11.5-14.5); WBC 6.4 10x3/uL (4.8-10.8)
[2019-12-17 07:24] LABS: ANION GAP 13.1 mmol/L (8-16); CALCIUM 8.9 mg/dL (8.5-10.1); CARBON DIOXIDE 24.2 mmol/L (21.0-32.0); CREATININE - SERUM 1.5 mg/dL (0.6-1.3); POTASSIUM - SERUM 4.3 mmol/L (3.5-5.1)
[2019-12-17 07:28] LABS: CHOL - HDL RATIO 6.3 ratio (2.3-4.9); LDL-HDL RATIO 3.9 ratio (1.5-3.5)
--- NOTE | 2019-12-17 08:41 | NUR ---
PT ARRIVED BY STRETCHER. PLACED ON MONITORS. ASSESSMENT COMPLETED. VSS. CALL LIGHT WITHIN REACH.
--- NOTE | 2019-12-17 08:56 | NUR ---
PT RESTING COMFORTABLY. VSS. RIGHT GROIN DRESSING C/D/I. NO S/S OF HEMATOMA NOTED. CALL LIGHT WITHIN REACH. VSS AT THIS TIME.
--- NOTE | 2019-12-17 09:30 | NUR ---
RIGHT GROIN DRESSING C/D/I. NO S/S OF HEMATOMA NOTED. CALL LIGHT WITHIN REACH. VSS. NO NEEDS AT THIS TIME.
--- NOTE | 2019-12-17 10:05 | NUR ---
RIGHT GROIN DRESSING C/D/I. NO S/S OF HEMATOMA NOTED. CALL LIGHT WITHIN REACH. HEAD OF BED INC TO 30 DEGREES. TOLERATED WELL. SET UP WITH SANDWICH TRAY AND DRINK.
--- NOTE | 2019-12-17 10:33 | NUR ---
DR. LANIER ROUNDED. SPOKE WITH PT REGARDING BRINGING BACK ON SATURDAY FOR LASER PROCEDURE. PT VOICED UNDERSTANDING. RIGHT GROIN DRESSING C/D/I. NO S/S OF HEMATOMA NOTED.
--- NOTE | 2019-12-17 10:43 | NUR ---
RIGHT GROIN DRESSING C/D/I. NO S/S OF HEMATOMA NOTED. PIV D/C'D WITH CATH TIP INTACT. TOLERATED WELL. VSS. PT INSTRUCTED TO GET UP AND DRESSED AT THIS TIME. PT VOIDED 200cc OF URINE IN URINAL WITHOUT DIFFICULTY. CALL LIGHT WITHIN REACH.
--- NOTE | 2019-12-17 10:50 | NUR ---
DISCUSSED DISCHARGE INSTRUCTIONS WITH PT. HE VOICED UNDERSTANDING.
--- NOTE | 2019-12-17 11:00 | NUR ---
RIGHT GROIN DRESSING C/D/I. NO S/S OF HEMATOMA NOTED. PT TAKEN DOWN TO VEHICLE BY WHEELCHAIR. NO S/S OF DISTRESS NOTED. ALL BELONGINGS AND PAPERWORK IN HAND.
== END 2019-12-17 11:00 | disposition home or self-care (01) ==
LOC: D.CATH 06:15
PROVIDERS: ATTEND Internal Medicine Cardiovascular Disease
DX: R07.9 Chest pain, unspecified (principal); I25.119 Atherosclerotic heart disease of native coronary artery with unspecified angina pectoris; I10 Essential (primary) hypertension; E78.5 Hyperlipidemia, unspecified; E11.9 Type 2 diabetes mellitus without complications; K21.9 Gastro-esophageal reflux disease without esophagitis; I05.9 Rheumatic mitral valve disease, unspecified; J44.9 Chronic obstructive pulmonary disease, unspecified; Z79.84 Long term (current) use of oral hypoglycemic drugs

== ENCOUNTER 2019-12-21 11:11 | Outpatient (CLI) | payer MEDICARE, OTHER ==
[~2019-12-21] VITALS: Ht 156.2 cm; Wt 95.5 kg
--- NOTE | ~2019-12-21 | HEMODYNAMI ---
PATIENT:Amanda KENDRICK MEDICAL RECORD: [id number] : 52 LOCATION:DGIN ADMISSION DATE: 12/21/19 Generatedon:12/21/201914:10 Patient name: Amanda KENDRICK Patient #: [id number] SSN: [id number] : 1950 Date of study: 12/21/2019 Page: Of Hemodynamic Procedure Report Patient Data Patient Demographics Procedure consent was obtained First Name: Amanda Gender: Male Last Name: AROLDO : 1950 [facility] Initial: B Age: 69 year(s) Patient #: [id number] Race: SSN: [id number] Additional ID: [id number] Contact details Address: [address] [place] [address] State: [place] City: [facility] Zip code: [address] Past Medical History Allergies Allergen Reaction Date Comments Reported Other allergy 12/27/2015 codeine, penicillins Codeine 08/17/2016 Penicillins 08/17/2016 SUSAN inhibitors 08/17/2016 Other allergy 09/27/2017 CODEINE, PCN Other allergy 05/19/2018 CODEINE, PCN Other allergy 12/17/2019 CODEINE, PCN Other allergy 12/21/2019 Codeine pcn Admission Admission Data Admission Date: 12/21/2019 Admission Time: 11:11 Admit Source: Other Insurance Payor: Private health insurance, Medicare Height (in.): 61.42 BSA: 1.94 (m2) Height (cm.): 156 BMI: 39.45 (kg/m2) Weight (lbs.): 211.64 Weight (kg.): 96 Lab Results Lab Result Date: 12/17/2019 Lab Result Time: 0:00 Biochemistry Name Units Result Min Max BUN mg/dl 28 --(----)-* 7 18 Creatinine mg/dl 1.5 --(----)-* 0.6 1.3 eGFR ml/min 49 *-(----)-- 90 120 NONAFRICAN CBC Name Units Result Min Max Hematocrit % 37.9 *-(----)-- 42 54 Hemoglobin g/dl 11.6 *-(----)-- 13.5 17.5 Procedure Procedure Types Cath Procedure Diagnostic Procedure Sedation Charges Moderate Sedation up to 45 minutes PCI Procedure Hemochron ACT Test Procedure Description Procedure Date Procedure Date: 12/21/2019 Procedure Start Time: 13:12 Procedure End Time: 14:07 Procedure Staff Name Function Todd Brooks MD Performing Physician Shirley Mota RT Monitor Rajesh Robledo RT Scrub Aguilar Reynolds RN Nurse Procedure Data Cath Procedure Fluoroscopy Diagnostic fluoroscopy Total fluoroscopy Time: 8.4 time: 8.4 min min Diagnostic fluoroscopy Total fluoroscopy dose: dose: 1701 mGy 1701 mGy Contrast Material Contrast Material Type Amount (ml) Isovue 370 102 Entry Location Entry Primary Successful Side Size Upsize Upsize Entry Closure Succes sful Closure Location (Fr) 1 (Fr) 2 (Fr) Remarks Device Remarks Femoral Right 6 Fr Exoseal artery Short Estimated blood loss: 10 ml Procedure Complications No complications Procedure Medications Medication Administration Route Dosage Oxygen etCO2 Nasal cannula 2 l/min Lidocaine 2% added to field 20 Heparin Flush Bag added to field 2 bags (1000units/500ml NS) 0.9% NaCl I.V. 100 ml/hr Versed I.V. 1 mg Fentanyl I.V. 50 mcg Versed I.V. 1 mg Fentanyl I.V. 50 mcg Versed I.V. 1 mg Nitroglycerin IC/IA I.C. 100 mcg Heparin Bolus I.V. 9000 units Nitroglycerin IC/IA I.C. 100 mcg Integrilin (Bolus I.C. 9 ml 2mg/ml) Cardene I.C. 300 mcg Integrilin Drip I.V. drip 7.8 ml/hr (75mg/100ml) Hemodynamics Rest BSA: 1.94 (m2) HGB: 11.6 (g/dl) O2 Consumption: Estimated: 214.05 (ml/min) O2 Co nsumption indexed: Estimated:110.34 (ml/min/m) Heart Rate: 55 (bpm) Snapshots Pre Cath Intra NCS Post Cath Vital Signs Time Heart Resp SPO2 etCO2 NIBP (mmHg) Rhythm Pain Sedation Rate (ipm) (%) (mmHg) Status Level (bpm) 12:58:34 55 11 98 0 146/78(111) NSR 0 (11) 10(A) , No pain 13:02:45 55 11 95 0 152/90(112) NSR 0 (11) 10(A) , No pain 13:06:55 55 17 95 29.5 136/74(104) NSR 0 (11) 10(A) , No pain 13:11:07 52 20 98 17.4 145/75(118) NSR 0 (11) 10(A) , No pain 13:15:25 52 12 98 17.3 134/68(103) NSR 0 (11) 10(A) , No pain 13:19:40 52 14 96 33.3 112/63(83) NSR 0 (11) 9(A) , No pain 13:23:43 51 13 99 41.6 109/72(100) NSR 0 (11) 9(A) , No pain 13:27:47 50 10 99 45.4 121/68(99) NSR 0 (11) 9(A) , No pain 13:32:01 50 13 99 44.6 120/55(82) NSR 0 (11) 9(A) , No pain 13:36:11 50 10 99 49.9 98/61(77) NSR 0 (11) 9(A) , No pain 13:40:18 51 11 99 45.4 97/47(68) NSR 0 (11) 9(A) , No pain 13:44:20 51 12 99 43.8 102/62(77) NSR 0 (11) 9(A) , No pain 13:48:24 53 13 99 45.4 105/59(73) NSR 0 (11) 9(A) , No pain 13:52:28 54 36 99 41.6 119/64(86) NSR 0 (11) 9(A) , No pain 13:56:35 53 25 99 37 127/68(94) NSR 0 (11) 9(A) , No pain 14:00:43 55 18 98 37.8 138/75(114) NSR 0 (11) 9(A) , No pain 14:05:43 56 12 97 25.7 Measuring NSR 0 (11) 10(A) , No pain Medications Time Medication Route Dose Verified Delivered Reason Notes Effectiveness by by 12:57:39 Oxygen etCO2 2 Todd Buffie used for Nasal l/min Todd Reynolds RN procedure cannula 12:57:45 Lidocaine 2% added 20ml Todd Todd for local to vial Todd Brooks MD anesthetic field 12:57:51 Heparin Flush added 2 Todd Todd used for Bag to bags Todd Brooks MD procedure (1000units/500ml field NS) 12:58:01 0.9% NaCl I.V. 100 Todd Buffie Per physician ml/hr Todd Reynolds RN 13:08:27 Versed I.V. 1 mg Todd Buffie for sedation Todd Reynolds RN 13:08:32 Fentanyl I.V. 50 Todd Buffie for sedation mcg Todd Reynolds RN 13:14:43 Versed I.V. 1 mg Todd Buffie for sedation Todd Reynolds RN 13:14:48 Fentanyl I.V. 50 Todd Buffie for sedation mcg Todd Reynolds RN 13:21:18 Versed I.V. 1 mg Todd Buffie for sedation Todd Reynolds RN 13:30:19 Nitroglycerin I.C. 100 Todd Todd for IC/IA mcg Todd Brooks MD vasodilation 13:33:17 Heparin Bolus I.V. 9000 Todd Buffie for verif ied units Todd Reynolds RN anticoagulation with dr brooks 13:35:43 Nitroglycerin I.C. 100 Todd Todd for IC/IA mcg Todd Brooks MD vasodilation 13:38:53 Integrilin I.C. 9 ml Todd Todd for waste d 1 (Bolus 2mg/ml) Todd Brooks MD antiplatelet ml of therapy vial 13:47:26 Cardene I.C. 300 Todd Todd for mcg Todd Brooks MD vasodilation 13:57:38 Integrilin Drip I.V. 7.8 Todd Buffie for via (75mg/100ml) drip ml/hr Todd Reynolds RN antiplatelet smart therapy pump, renal dose, cr 1.5. Drip to run for 12 hrs. Procedure Log Time Note 12:30:30 Aguilar Reynolds RN sent for patient. Start room use. 12:32:58 Informed consent obtained and on chart 12:42:10 Admit Source: Other 12:42:27 Insurance Payor : Private health insurance, Medicare 12:49:01 Patient Weight : 211.64 lbs 12:49:04 Patient Height : 61.42 inches 12:49:21 Diagnostic Cath Status : Elective 12:49:23 PCI Cath Status : Elective 12:49:28 Procedure Status Elective Heart Cath (OP). 12:49:35 Time tracking: Regular hours (M-F 7:00 - 5:00) 12:49:38 Plan of Care:Hemodynamics will remain stable., Cardiac rhythm will remain stable., Comfort level will be maintained., Respiratory function will remain adequate., Patient/ family verbilizes understanding of procedure., Procedure tolerated without complication., Recovers from procedure without complications.. 12:49:42 Patient received from Pre/Post Procedure Room to CCL 1 Alert and oriented. Tansferred to table in Supine position. 12:49:43 Warm blankets applied, and jacinto hugger turned on for patient comfort. 12:49:43 Correct patient and procedure confirmed by team. 12:49:44 ECG and BP/O2 sat monitors applied to patient. 12:50:02 H&P Date Dictated: 12/16/2019 Within 30 days and on chart., H&P Addendum completed by physician on day of procedure. (MUST COMPLETE FOR ALL OUTPATIENTS). 12:50:04 Pre-procedure instructions explained to patient. 12:50:04 Pre-op teaching completed and patient verbalized understanding. 12:57:27 Vital chart was started 12:57:39 Oxygen 2 l/min etCO2 Nasal cannula was administered by Aguilar Reynolds RN; used for procedure; Verbal order read back and verified. 12:57:45 Lidocaine 2% 20ml vial added to field was administered by Todd Brooks MD; for local anesthetic; Verbal order read back and verified. 12:57:51 Heparin Flush Bag (1000units/500ml NS) 2 bags added to field was administered by Todd Brooks MD; used for procedure; Verbal order read back and verified. 12:58:01 0.9% NaCl 100 ml/hr I.V. was administered by Aguilar Reynolds RN; Per physician; Verbal order read back and verified. 13:04:25 Baseline sample Acquired. 13:04:30 Rhythm: sinus bradycardia 13:04:31 Full Disclosure recording started 13:04:34 Family unavailable. 13:04:36 Patient NPO since Midnight. 13:04:57 Patient allergic to Other allergyCodeine pcn 13:05:04 Is the patient allergic to Iodine/contrast media? No. 13:05:09 Was the patient premedicated? N/A 13:05:13 Is patient on blood thinner?No 13:05:15 Patient diabetic? Yes. 13:05:17 If diabetic: On Metformin? Yes 13:05:24 If on Metformin: Last Dose? 12/17/2019 13:05:27 ----Pre-sedation anethsthesia assessment.---- 13:05:30 Previous problem with sedation/anesthesia? No ? 13:05:31 Snore? Yes 13:05:32 Sleep apnea? Yes 13:05:33 Deviated septum? No 13:05:34 Opens mouth fully? Yes 13:05:35 Sticks out tongue? Yes 13:05:37 Airway obstruction? No ? 13:05:41 Dentures? Yes IN TIGHT 13:05:45 Pre procedure: right dorsailis pedis pulse 2+ Normal; easily identifiable; not easily obliterated 13:05:50 Patient pain scale 0/10 ?. 13:06:04 IV patent on arrival in right antecubital with 0.9% NaCl at [facility]. 13:06:13 Lab results completed and on chart. 13:06:21 Stress Test: no; N/A ? 13:06:31 Right groin area was prepped with chlora-prep and draped in sterile fashion 13:06:32 Alarms reviewed by R. N. 13:06:32 Sharps counted by scrub and verified by R.N. 13:08:16 --------ALL STOP TIME OUT------ 13:08:17 Final Timeout: patient, procedure, and site verified with staff and physician. All members of the team are in agreement. 13:08:18 Right groin site verified by team. 13:08:22 Fire Safety Assessment: A--An alcohol-based skin anteseptic being used preoperatively., C--Open oxygen or nitrous oxide is being used., D--An ESU, laser, or fiber-optic light is being used. 13:08:25 Physical assessment completed. ASA score P 2 - A patient with mild systemic disease as per Todd Brooks MD. 13:08:27 Versed 1 mg I.V. was administered by Aguilar Reynolds RN; for sedation; Verbal order read back and verified. 13:08:32 Fentanyl 50 mcg I.V. was administered by Aguilar Reynolds RN; for sedation; Verbal order read back and verified. 13:08:32 3a) 45-59 Moderately reduced kidney function. 13:08:45 Maximum allowable contrast dose (3.7 X eGFR X 0.75)136 ml. 13:08:50 Sedation plan: IV Moderate Sedation Medication:Versed, Fentanyl 13:08:56 Use device set BROOKS PCI 13:08:59 TUBING High Pressure Extension Tubing (Todd) ([id number]) opened to sterile field. 13:09:00 INFLATOR Merit BasixCompak ([id number]) opened to sterile field. 13:09:03 SHEATH 6FR [place] (SQA503) opened to sterile field. 13:09:21 Use device set Femoral Dx 13:09:24 ACIST Syringe (12856) opened to sterile field. 13:09:25 Bag Decanter (2002S) opened to sterile field. 13:09:26 Medline Cath Pack ([id number]) opened to sterile field. 13:09:30 EMERALD Guide Wire (854-178) opened to sterile field. 13:09:34 ACIST Hand Control (75910) opened to sterile field. 13:09:35 ACIST Manifold (19733) opened to sterile field. 13:11:18 WHISPER 300cm guide wire ([id number]) opened to sterile field. 13:11:19 LASER ELCA 0.9 OTW atherectomy catheter (110-002) opened to sterile field. 13:11:37 GUIDE 6FR XBLAD 3.5 catheter ([id number]) opened to sterile field. 13:11:50 Procedure started. 13:12:35 Local anesthetic to right femoral artery with Lidocaine 2% by Todd Brooks MD.INITIAL ACCESS ONLY 13:13:43 A 6 Fr Short sheath was inserted into the Right Femoral artery 13:14:43 Versed 1 mg I.V. was administered by Aguilar Reynolds RN; for sedation; Verbal order read back and verified. 13:14:48 Fentanyl 50 mcg I.V. was administered by Aguilar Reynolds RN; for sedation; Verbal order read back and verified. 13:15:02 6 Fr XBLAD 3.5 guide catheter was inserted over the wire 13:17:15 WHISPER 300 wire advanced. 13:21:18 Versed 1 mg I.V. was administered by Aguilar Reynolds RN; for sedation; Verbal order read back and verified. 13:23:23 Wire removed. 13:23:31 Asahi Minamo 300cm wire opened to sterile field. 13:24:02 MINAMO 300 wire advanced. 13:24:45 Zero performed for pressure channel P1 13:24:46 Zero performed for pressure channel P1 13:24:51 Zero performed for pressure channel P1 13:30:19 Nitroglycerin IC/IA 100 mcg I.C. was administered by Todd Brooks MD; for vasodilation; Verbal order read back and verified. 13:33:17 Heparin Bolus 9000 units I.V. was administered by Aguilar Reynolds RN; for anticoagulation; verified with dr brooks Verbal order read back and verified. 13:35:43 Nitroglycerin IC/IA 100 mcg I.C. was administered by Todd Brooks MD; for vasodilation; Verbal order read back and verified. 13:38:53 Integrilin (Bolus 2mg/ml) 9 ml I.C. was administered by Todd Brooks MD; for antiplatelet therapy; wasted 1 ml of vial Verbal order read back and verified. 13:46:48 UNABLE TO CROSS LESION WITH MINAMO WIRE, UNABLE TO CONTINUE WITH LASER PROCEDURE. 13:47:26 Cardene 300 mcg I.C. was administered by Todd Brooks MD; for vasodilation; Verbal order read back and verified. 13:49:33 MARSHALL DONE FOR BETTER VIEW OF D-LAD. 13:52:19 EXOSEAL 6Fr (EX600) opened to sterile field. 13:56:55 Fluoroscopy time 08.40 minutes. 13:57:01 Flurop Dose total: 1701 13:57:01 Fluoroscopy dose: 1701 mGy 13:57:08 Dose Area Product 03208 mGy/cm. 13:57:14 Contrast amount:Isovue 370 102ml. 13:57:17 Maximum allowable dose exceeded? No. 13:57:38 Integrilin Drip (75mg/100ml) 7.8 ml/hr I.V. drip was administered by Aguilar Reynolds RN; for antiplatelet therapy; via smart pump, renal dose, cr 1.5. Drip to run for 12 hrs. Verbal order read back and verified. 14:00:53 Sheath removed intact; hemostasis achieved with Exoseal to the Right Femoral artery. 14:01:12 Procedure ended.(Physican Out) 14:01:30 Post right femoral artery:stable, soft, clean and dry 14:01:40 Post procedure: right dorsailis pedis pulse 2+ Normal; easily identifiable; not easily obliterated. 14:01:44 Post-procedure physical assessment completed. ASA score P 2 - A patient with mild systemic disease as per Todd Brooks MD. 14:01:46 Post procedure rhythm: unchanged. 14:01:50 Estimated blood loss: 10 ml 14:02:52 Post procedure instruction explained to patient.Patient verbalizes understanding. 14:02:53 Patient needs reinforcement of post procedure teaching. 14:05:12 ACT drawn and resulted at 358 seconds. (normal therapeutic range 180-240 seconds). 14:06:44 Procedure type changed to Cath procedure, Diagnostic procedure, Sedation Charges, Moderate Sedation up to 45 minutes, PCI procedure, Hemochron ACT Test 14:07:32 Procedure and supply charges have been captured, reviewed, submitted and are correct. 14:07:36 Procedure Complication : No complications 14:07:38 Vital chart was stopped 14:07:40 [facility] Findings: MVD- MD will discuss options w/ pt 14:07:44 Operative report dictated upon procedure completion. 14:07:45 See physician's report for complete and final results. 14:07:49 Report given to PCU. 14:07:52 Patient transfered to PCU with Bed. 14:07:55 Procedure ended. 14:07:55 Full Disclosure recording stopped 14:08:11 End room use (Document Last) 14:08:50 End room use (Document Last) 14:09:14 End room use (Document Last) Device Usage Item Name Manufacture Quantity Catalog Hospital Part Current Minimal Lot# / Number Charge Number Stock Stock Serial# Code TUBING High Merit 1 [id number] 15646 [id number] 10 Pressure Medical Extension Tubing (Todd) ([id number]) INFLATOR Merit 1 [id number] 814373 607620 268026 15 [employer] Medical BasixCompak (PU0881) SHEATH 6FR Terumo 1 [id number] 545640 049184 117882 40 [place] (ZEX013) ACIST Acist 1 30764 125583 558907 012133 20 Syringe Medical (02926) Systems Inc Bag Microtek 1 2001S 190404 75821 284638 5 Decanter Medical Inc. (2001S) Medline Medline 1 [id number] 172836 87509 429314 5 Cath Pack ([id number]) EMERALD Cardinal 1 502-455 323178 248862 008644 5 Guide Wire Health (502-455) ACIST Hand Acist 1 24469 389440 886288 274939 5 Control Medical (66239) Systems Inc ACIST Acist 1 02769 895318 434280 377685 5 Manifold Medical (76070) Systems Inc WHISPER Gonzalez 1 [id number] 062049 514493 755624 5 300cm guide Vascular wire ([id number]) LASER ELCA Viridiana 1 110-002 765584 003118 250175 5 0.9 [facility] Vertra atherectomy (862115) catheter (110-002) GUIDE 6FR Cardinal 1 [id number] 553978 041499 489506 10 XBLAD 3.5 Health catheter (22400077) Asahi Asahi Intecc 1 [id number] 952343 9408680 267314 0 [place] 300cm wire EXOSEAL 6Fr Cardinal 1 EX600 223103 193472 875294 10 (EX600) Health Signature Audit [place] Stage Time Signature Unsigned Intra-Procedure 12/21/2019 Shirley Mota 2:08:50 PM RT(R) Intra-Procedure 12/21/2019 Aguilar Reynolds RN 2:09:14 PM Intra-Procedure 12/21/2019 Todd Brooks MD 2:10:48 PM [facility] [address] [place] [address]
[~2019-12-21 11:11] MED LIST changes: +NITROSTAT0.4 MG SL
[2019-12-21] MEDS ORDERED: RELION INSULIN (11:32)
[2019-12-21 11:58] VITALS: BP 146/81; BMI 39.6
[2019-12-21 12:18] LABS: ANION GAP 8.3 mmol/L (8-16); CALCIUM 9.3 mg/dL (8.5-10.1); CARBON DIOXIDE 31.3 mmol/L (21.0-32.0); CREATININE - SERUM 1.5 mg/dL (0.6-1.3); POTASSIUM - SERUM 4.6 mmol/L (3.5-5.1)
[2019-12-21 13:36] LABS: HEMATOCRIT 39.7 % (42.0-54.0); HEMOGLOBIN 12.1 g/dL (13.5-17.5); LYMPHOCYTES 27.4 % (15-50); MCH 24.8 pg (26.0-34.0); MCHC 30.5 g/dL (31.0-37.0); MCV 81.5 fL (80.0-100.0); MEAN PLATELET VOLUME 9.8 fL (7.4-10.4); NEUTROPHILS 55.8 % (40-80); PLATELET COUNT 364 10x3/uL (130-400); RBC 4.87 10x6/uL (4.20-6.10); RDW 15.4 % (11.5-14.5); WBC 5.9 10x3/uL (4.8-10.8)
--- NOTE | 2019-12-21 14:25 | NUR ---
PT RECEIVED TO ROOM 3 FOR HOLDING UNTIL BED ON MED 2 OPENS UP. PT WILL BE TRANSFERRED TO 2115 AT THAT TIME FOR OVERNIGHT OBSERVATION. PT AWAKE, SLIGHTLY DROWSY DENIES PAIN OR DISCOMFORT. IVPB OF INTEGRLIN INFUSING VIA PUMP PER TONNY POP PATENT. PT PLACED ON CARDIAC MONITORS AND O2 VIA NC AT 2L. HR SB AT 54, BP 136/75, RR 6FR EXOCELE TO R GROIN, DRESSING CDI NO S/S HEMATOMA OR BLEEDING NOTED. LEG PINK AND WARM. SIPS OF DT SPRITE GIVEN PER REQUEST. CALL LIGHT IN REACH PT INSTRUCTED TO KEEP HEAD ON PILLOW AND LEG STRAIGHT, HE VERBALIZED UNDERSTANDING.
--- NOTE | 2019-12-21 14:45 | NUR ---
R GROIN SOFT, DRESSING REMAINS CDI NO S/S HEMATOMA NOTED. VSS. REPORT GIVEN TO ROXIE MERLOS ON MED 2 TO ASSUME CARE. IV PATENT INFUSING VIA PUMP PER ORDERS. CALL LIGHT IN REACH
--- NOTE | 2019-12-21 14:55 | NUR ---
PT DENIES CHEST PAIN , HAVING SOME ELEVATED T WAVES. 12 LEAD EKG COMPLETED PER DR LANIER. NO NEW ORDERS OK TO PROCEED WITH TRANSFER.
--- NOTE | 2019-12-21 15:25 | NUR ---
PT TRANSFERRED TO ROOM 2115 VIA STRETCHER.
--- NOTE | 2019-12-21 15:27 | NUR ---
RECIEVED PT TO ROOM 2114 VIA STRETCHER, X3 ASSIST TO TRANSFER PT OVER TO BED. PT A/O X4, RESP EVEN AND NONLABORED ON RA. RT GROIN DRESSING CDI. PALPABLE PULSES. PT ON INTEGRILIN DRIP AT 7.9ML/HR. PT TO REMAIN ON DRIP UNTIL 2 AM. ORIENTED PT TO ROOM AND CALL LIGHT, WILL ASSESS PT AND START PLAN OF CARE.
[2019-12-21 15:53] VITALS: BP 139/55; Ht 156.2 cm; Wt 95.5 kg
[2019-12-21 20:54] VITALS: BP 139/57
[2019-12-22 00:30] VITALS: BP 117/57
[2019-12-22 06:28] VITALS: BP 120/62
[2019-12-22 09:14] VITALS: BP 119/69
--- NOTE | 2019-12-22 09:20 | NUR ---
IV AND TELEMETRY DCD. DC PLANS GIVEN. UNDERSTANDING VOICED. SISTER CALLED FOR RIDE.
--- NOTE | 2019-12-22 09:47 | NUR ---
ESCORTED TO CAR BY W/C.
== END 2019-12-22 09:48 | disposition home or self-care (01) ==
LOC: D.CATH 11:11 → D.M2 15:30 → D.CATH 12-22 09:48
PROVIDERS: ATTEND Internal Medicine Cardiovascular Disease
DX: I25.119 Atherosclerotic heart disease of native coronary artery with unspecified angina pectoris (principal); I10 Essential (primary) hypertension; E78.5 Hyperlipidemia, unspecified; R07.9 Chest pain, unspecified; K21.9 Gastro-esophageal reflux disease without esophagitis; E11.9 Type 2 diabetes mellitus without complications; J44.9 Chronic obstructive pulmonary disease, unspecified; I05.9 Rheumatic mitral valve disease, unspecified; Z79.84 Long term (current) use of oral hypoglycemic drugs